=== PATIENT | male | born 1940 | race Caucasian/White ===

== ENCOUNTER → 2017-04-22 | Outpatient (CLI) | payer MEDICARE, BC ==
--- NOTE | 2017-04-22 20:16 | CT ---
EXAMINATION TYPE: CT thoracic spine wo con DATE OF EXAM: 04/22/2017 COMPARISON: NONE HISTORY: Mid back pain x [address] DLP: 2075.00 mGycm Automated exposure control for dose reduction was used. Unenhanced CT of the thoracic spine was performed in the axial coronal and sagittal planes with bone and soft tissue window settings submitted. FINDINGS: There is mildly exaggerated thoracic kyphosis. No evidence for fracture or subluxation. Severe degene rative disc disease with vacuum disc at T7-8, T8-T9 and T9-T10. Mild posterior disc bulging without e vidence for central stenosis. The remaining levels have a normal appearance of the patient's age grou p. There is mild ventral spondylosis. Do not see evidence of bony destructive process. No central naif nosis or paraspinal mass identified. Emphysematous changes of the lungs. Prominence of the heart which is partially imaged as well as asce nding thoracic aorta. 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 IMPRESSION: 1. DEGENERATIVE DISC DISEASE WITH SPONDYLOSIS AND MILD DISC BULGING THORACIC SPINE DISCUSSED ABOVE .
== END ==
LOC: RADCTMAIN 18:57
PROVIDERS: ATTEND Physical Medicine & Rehabilitation
DX: M51.24 Other intervertebral disc displacement, thoracic region (principal); M51.34 Other intervertebral disc degeneration, thoracic region; M47.814 Spondylosis without myelopathy or radiculopathy, thoracic region
CPT/HCPCS: 72128

== ENCOUNTER → 2019-03-16 | Outpatient (CLI) | payer MEDICARE, BC ==
--- NOTE | 2019-03-16 13:23 | CT ---
EXAMINATION TYPE: CT lumbar spine wo con DATE OF EXAM: 03/16/2019 12:45 PM COMPARISON: None HISTORY: Spondylosis CT DLP: 1382.1 mGycm Automated exposure control for dose reduction was used. Unenhanced CT of the lumbar spine was performed. Bone and soft tissue window settings are submitted as well as coronal and sagittal reconstructions. There is a curvature the spine with severe degenerative disc disease L4-5 and L5-S1. There is mild an eurysm of the abdominal aorta measuring a maximal dimension of 3.0 cm and there is aneurysmal dilatio n the left common iliac artery which appears to demonstrate an area of iliac artery dissection indete rminate age. The artery measures 2.3 cm. L1-L2: Normal disc space height. No disc herniation protrusion or central stenosis. No facet joint arthropathy. No evidence for foraminal encroachment. L2-L3: Degenerative disc disease and hypertrophic spurring. There is facet arthropathy. Mild paracent ral and lateral left disc bulging results in mild left foraminal encroachment. Effacement of thecal s ac and mild central stenosis suspected. L3-L4: Facet hypertrophy and diffuse disc bulging. Mild bilateral foraminal encroachment. There is ef facement of thecal sac. Could not exclude a left paracentral disc small protrusion. Suspect canal naif nosis. L4-L5: Severe degenerative disc disease. Broad-based central disc bulging is seen and there is facet arthropathy. Canal stenosis and bilateral foraminal encroachment suspected L5-S1: Vacuum disc and severe degenerative disc disease. Central broad-based disc bulging seen and th ere is facet arthropathy with moderate bilateral foraminal encroachment. Central canal stenosis sugge sted. IMPRESSION: 1. Scoliotic curvature with multilevel degenerative disc disease. Severe degenerative disc disease wi th vacuum disc at levels L2-3, L4-5, and L5-S1. 2. Multilevel canal stenosis and foraminal encroachment suspected. 3. There is a 3 cm infrarenal abdominal aortic aneurysm with aneurysmal dilation the left common jigna c artery. 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 Report called to the patient's referring physician. A [facility] level critical message alert has been initiated for Austin Love MD via the [facility] Critical Results System on 03/16/2019 1:14 PM. This message alert has been sent to Austin shrestha MD via the preferences provided by the clinician for the receipt of Radiology Critical Findings. Message ID [id number].
== END | disposition home or self-care (01) ==
LOC: RADCTMAIN 12:21
PROVIDERS: ATTEND Physical Medicine & Rehabilitation
DX: M51.36 Other intervertebral disc degeneration, lumbar region (principal); M51.37 Other intervertebral disc degeneration, lumbosacral region; M41.86 Other forms of scoliosis, lumbar region
CPT/HCPCS: 72131

== ENCOUNTER → 2021-04-02 | Outpatient (CLI) | payer MEDICARE, BC ==
--- NOTE | 2021-04-02 13:42 | CT ---
EXAMINATION TYPE: CT lumbar spine wo con DATE OF EXAM: 04/02/2021 1:26 PM COMPARISON: CT lumbar spine March 16, 2019 HISTORY: Low back and bilateral hip pain x [address] DLP: 1134 mGycm Automated exposure control for dose reduction was used. Unenhanced CT of the lumbar spine was performed. Bone and soft tissue window settings are submitted as well as coronal and sagittal reconstructions. There are 5 lumbar-type vertebra redemonstrated. Persistent dextroconvex scoliosis centered near L1-L 2 level and levoconvex scoliosis centered near lumbosacral junction. Vertebral body heights are maint ained. [id number] disc space narrowing with vacuum disc phenomenon at L5-S1 level redemonstrate d. Moderate disc space narrowing with endplate sclerosis right L4-L5 level again seen. Prominent spur from anterior superior L3 vertebra. Multilevel spinous process hypertrophy noted. Axial images at the T12-L1 and L1-L2 levels remain within normal limits. Axial images at the L2-L3 level redemonstrated mild to moderate facet arthropathy and ligamentum flav um hypertrophy with [id number] broad disc bulge. Mild effacement of the anterior thecal sac wit h mild to moderate left sided neural foraminal narrowing inferiorly. Right-sided neural foramina is p atent. No significant change from prior. Axial images at the L3-L4 level redemonstrated moderate broad disc bulge and mild to moderate facet a rthropathy and ligamentum flavum hypertrophy. Some effacement of the anterior and posterior lateral t hecal sac redemonstrated. Mild to moderate bilateral neural foraminal narrowing again seen. No signif icant change from prior. Axial images at the L4-L5 level show moderate right greater than left facet arthropathy. Moderate bro ad disc bulge is present. Mild effacement of the anterior thecal sac. Moderate to severe right along with mild left-sided neural foraminal narrowing. No significant change from prior. Axial images at L5-S1 level show left paracentral disc protrusion and mild facet arthropathy. There i s moderate right greater than left bilateral neural foraminal narrowing. No significant change from p rior. There is ectatic and moderate to severe atherosclerotic abdominal aorta and common iliac arterial ves sels redemonstrated. No greater than 3.0 cm AAA. IMPRESSION: Scoliosis with multilevel degenerative changes as detailed above greatest in the mid to l ower lumbar spine. No significant interval degenerative progression from 2019 CT.
== END | disposition home or self-care (01) ==
LOC: RADCTMAIN 12:57
PROVIDERS: ATTEND Physical Medicine & Rehabilitation
DX: M48.061 Spinal stenosis, lumbar region without neurogenic claudication (principal); M51.27 Other intervertebral disc displacement, lumbosacral region; M51.36 Other intervertebral disc degeneration, lumbar region; M47.816 Spondylosis without myelopathy or radiculopathy, lumbar region; M99.73 Connective tissue and disc stenosis of intervertebral foramina of lumbar region
CPT/HCPCS: 72131

== ENCOUNTER → 2021-05-20 | Outpatient (CLI) | payer MEDICARE, BC ==
--- NOTE | 2021-05-20 11:20 | CT ---
EXAMINATION TYPE: CT ChestAbdPelvis wo con DATE OF EXAM: 05/20/2021 INDICATION: Abdominal aortic aneurysm without rupture COMPARISON: None CT DLP: 1385.9 mGycm CONTRAST: Performed without Oral Contrast. Intravenous contrast was not utilized at this time given abnormal re nal function. TECHNIQUE: Axial images at 5 mm thick sections. Reconstructed images in the coronal plane. Delayed images through the kidneys. FINDINGS: There is a three-vessel arch. Vascular calcification is within the aorta and great vessels. The aort a at the aortic root is 3.1 cm. The aorta at the level of the main pulmonary artery is 4.3 cm. Aortic arch transverse dimension is 3.0 cm. Descending thoracic aorta at the level of the diaphragm is 2.7 cm. Calcification is within the superior mesenteric artery. Some calcifications within the celiac axis. R enal artery calcification is noted there is fusiform prominence of the mid abdominal aorta with surro unding calcification. Greatest transverse dimension is 2.5 cm. This terminates above the bifurcation. However, the densely calcified left common iliac artery is somewhat prominent with the transverse di mension of 1.6 cm in its midportion. CT CHEST: Portion of the thyroid visualized is normal. There is a calcified granuloma in the right upper lobe periphery measuring 0.8 cm. Series 4 image 15. Note is made of emphysematous changes within the upper lung mon. No suspicious infiltrates are ev ident. No enlarged mediastinal or hilar adenopathy is evident. The ascending aorta diameter at the level of the main pulmonary artery is 4.3 cm. The main pulmonary artery diameter at the bifurcation is 2.[address] ABDOMEN: Liver: Normal Spleen: Normal Pancreas: Normal Adrenal glands: The adrenal glands are normal. Gallbladder: Normal Kidneys: No masses are evident. No hydronephrosis is present. No cysts are present. Delayed images were obtained through the kidneys, which remain unremarkable. Aorta: Vascular calcification is within the aorta. Inferior vena cava: Normal. CT PELVIS: Loops of bowel within the abdomen and pelvis are normal. There are loops of bowel which are incom pletely distended or lack oral contrast limiting their evaluation. Appendix: Small segment of the appendix is normal as visualized. Urinary bladder: Normal. Genitourinary structures: Prostate is prominent Osseous structures: No suspicious lytic or sclerotic lesions. IMPRESSIONS: 1. Ascending thoracic aortic aneurysm measuring 4.3 cm. 2. Fusiform prominence mid abdominal aorta with a transverse dimension of 2.5 cm. There is also some prominence of the left mid common iliac artery of 1.6 cm. 3. No suspicious intra-abdominal or pelvic abnormality. 4. No suspicious intrathoracic abnormality otherwise evident.
== END | disposition home or self-care (01) ==
LOC: RADCTMAIN 07:56
PROVIDERS: ATTEND Thoracic Surgery (Cardiothoracic Vascular Surgery)
DX: I71.2 Thoracic aortic aneurysm, without rupture (principal)
CPT/HCPCS: 36415; 71250; 74176; 82565; 84520

== ENCOUNTER 2023-05-18 12:56 | Inpatient (IN) | payer MEDICARE, BC ==
[2023-05-18 13:29] LABS: Basophils % (A) 0 %; Eosinophils # (A) 0.2 k/uL (0-0.7); Eosinophils % (A) 3 %; HGB 15.2 gm/dL (13.0-17.5); Lymphocytes # (A) 1.8 k/uL (1.0-4.8); Lymphocytes % (A) 27 %; MCH 30.8 pg (25.0-35.0); MCHC 31.7 g/dL (31.0-37.0); Mean Platelet Volume 10.4; Monocytes # (A) 0.5 k/uL (0-1.0); Monocytes % (A) 7 %; Neutrophils % (A) 61 %; Platelet Count 159 k/uL (150-450); RBC 4.94 m/uL (4.30-5.90); RDW 14.1 % (11.5-15.5); WBC 6.6 k/uL (3.8-10.6)
[2023-05-18 13:41] LABS: Partial Thromboplastin Time 24.5 sec (22.0-30.0); Prothrombin Time 10.3 sec (9.0-12.0)
[2023-05-18 13:46] LABS: ALT 16 U/L (4-49); AST 24 U/L (17-59); African American GFR (CKD) 60 (>60 ml/min/1.73 sqM); Alkaline Phosphatase 52 U/L (38-126); Anion Gap 13 mmol/L; Blood Urea Nitrogen 21 mg/dL (9-20); Calcium 8.7 mg/dL (8.4-10.2); Carbon Dioxide 22 mmol/L (22-30); Chloride 107 mmol/L (98-107); Glucose 148 mg/dL (74-99); Non-African American GFR(CKD) 52 (>60 ml/min/1.73 sqM); Potassium 4.9 mmol/L (3.5-5.1); Sodium 142 mmol/L (137-145); Total Bilirubin 0.9 mg/dL (0.2-1.3)
--- NOTE | 2023-05-18 14:07 | XR ---
EXAMINATION TYPE: XR chest 2V DATE OF EXAM: 05/18/2023 COMPARISON: 05/20/2021 TECHNIQUE: PA and lateral views submitted. HISTORY: Weakness FINDINGS: The lungs are clear and there is no pneumothorax, pleural effusion, or focal pneumonia. Heart size normal and no overt failure. Osseous structures demonstrate hypertrophic and degenerative changes of the spine. Cardiac device and sternotomy wires. There is a 8mm nodule right upper lobe which correspo nds to a granuloma noted by prior CT scan. Underlying emphysematous changes. IMPRESSION: 1. No acute process. COPD.
--- NOTE | 2023-05-18 15:31 | ED ---
Weakness HPI - General Chief complaint: Weakness Stated complaint: Blurry Vision, multiple Falls Time Seen by Provider: 05/18/23 14:58 Source: patient Mode of arrival: wheelchair Limitations: no limitations - History of Present Illness Initial comments: 83-year-old male presents to the emergency department with complaint of visual disturbance. States for the past week that he has had a visual disturbance in his right eye which is transient. Reports that he has normal vision out of his left eye however his right eye has a visual defect in the periphery. When he is attempting to look with both eyes he will have complete vision loss on the right side however states if he closes his right eye he can see perfectly with his left. States that he notices the symptoms more in the morning and occasionally at night. He denies a curtain coming down over his eyes. Does not have active visual disturbance at this time. No history of similar. Last saw an demo specialist 6 months ago. No history of retinal disease or diabetic retinopathy. No history of macular degeneration. No history of strokes. He also admits that he has been dizzy and states his balance has been even worse over the past week. He is having difficulty ambulating due to the visual impairment. He denies any weakness in his arms or legs. No speech deficit. At this time he reports that his vision is completely normal. He denies headaches. No other alleviating, precipitating or modifying factors - Related Data Home Medications Medication Instructions Recorded Confirmed Aspirin EC [Ecotrin Low Dose] 81 mg PO DAILY 05/18/23 05/18/23 Clopidogrel [Plavix] 75 mg PO DAILY 05/18/23 05/18/23 Cyanocobalamin (Vitamin B-12) 1,000 mcg PO DAILY 05/18/23 05/18/23 [Vitamin B-12] Dapagliflozin Propanediol [Farxiga] 10 mg PO DAILY 05/18/23 05/18/23 Dulaglutide [Trulicity] 1.5 mg SQ CRAIN 05/18/23 05/18/23 Fish Oil/Dha/Epa [Fish Oil 1,200 1 cap PO DAILY 05/18/23 05/18/23 mg Fish Oil] Pregabalin [Lyrica] 200 mg PO BID 05/18/23 05/18/23 Rosuvastatin [Crestor] 10 mg PO HS 05/18/23 05/18/23 carvediloL [Coreg] 6.25 mg PO BID 05/18/23 05/18/23 lisinopriL [Zestril] 10 mg PO DAILY 05/18/23 05/18/23 sitaGLIPtin [Januvia] 50 mg PO DAILY 05/18/23 05/18/23 Allergies Allergy/AdvReac Type Severity Reaction Status Date / Time No Known Allergies Allergy Verified 05/18/23 16:42 Review of Systems ROS Statement: Those systems with pertinent positive or pertinent negative responses have been documented in the HPI. ROS Other: All systems not noted in ROS Statement are negative. Past Medical History Past Medical History: Diabetes Mellitus, Hypertension History of Any Multi-Drug Resistant Organisms: None Reported Past Surgical History: Appendectomy, Coronary Bypass/CABG, Orthopedic Surgery Additional Past Surgical History / Comment(s): knee and surgery Past Psychological History: No Psychological Hx Reported Smoking Status: Former smoker Past Alcohol Use History: None Reported Past Drug Use History: None Reported General Exam Limitations: no limitations General appearance: alert, in no apparent distress Head exam: Present: atraumatic, normocephalic, normal inspection Eye exam: Present: normal appearance, PERRL, EOMI. Absent: scleral icterus, conjunctival injection, periorbital swelling ENT exam: Present: normal exam, mucous membranes moist Neck exam: Present: normal inspection. Absent: tenderness, meningismus, lymphadenopathy Respiratory exam: Present: normal lung sounds bilaterally. Absent: respiratory distress, wheezes, rales, rhonchi, stridor Cardiovascular Exam: Present: regular rate, normal rhythm, normal heart sounds. Absent: systolic murmur, diastolic murmur, rubs, gallop, clicks GI/Abdominal exam: Present: soft, normal bowel sounds. Absent: distended, tenderness, guarding, rebound, rigid Extremities exam: Present: normal inspection, full ROM, normal capillary refill. Absent: tenderness, pedal edema, joint swelling, calf tenderness Back exam: Present: normal inspection Neurological exam: Present: alert, oriented X3, CN II-XII intact Psychiatric exam: Present: normal affect, normal mood Skin exam: Present: warm, dry, intact, normal color. Absent: rash Course Vital Signs 05/18/23 05/18/23 05/18/23 12:58 14:38 14:45 Temperature 98.2 F Pulse Rate 70 70 Pulse Rate [ 60 Voice Over Artist ] Respiratory 16 18 Rate Blood Pressure 140/76 141/78 Blood Pressure [Left Arm] O2 Sat by Pulse 96 96 Oximetry 05/18/23 05/18/23 05/18/23 15:00 17:00 18:00 Temperature Pulse Rate 65 68 85 Pulse Rate [ Voice Over Artist ] Respiratory 16 16 16 Rate Blood Pressure 140/60 166/88 165/95 Blood Pressure [Left Arm] O2 Sat by Pulse 98 98 98 Oximetry 05/18/23 05/18/23 20:03 20:09 Temperature 98.5 F Pulse Rate 70 Pulse Rate [ 69 Voice Over Artist ] Respiratory 18 18 Rate Blood Pressure 201/110 Blood Pressure 186/81 [Left Arm] O2 Sat by Pulse 97 97 Oximetry Medical Decision Making - Medical Decision Making Was pt. sent in by a medical professional or institution ([facility], [employer], urgent care, hospital, or correction...) When possible be specific @ -No Did you speak to anyone other than the patient for history (EMS, parent, family, police, friend...)? What history was obtained from this source @ -No Did you review nursing and triage notes (agree or disagree)? Why? @ -I reviewed and agree with nursing and triage notes Were old charts reviewed (outside hosp., previous admission, EMS record, old EKG, old radiological studies, urgent care reports/EKG's, correction records)? Report findings @ -No old charts were reviewed Differential Diagnosis (chest pain, altered mental status, abdominal pain women, abdominal pain men, vaginal bleeding, weakness, fever, dyspnea, syncope, headache, dizziness, GI bleed, back pain, seizure, CVA, palpatations, mental health, musculoskeletal)? @ -Differential CVA Ischemic stroke, hemorrhagic stroke, brain tumor, atypical migraine, Wernicke's encephalopathy, seizure, multiple sclerosis, meningitis, encephalitis, hypoglycemia, Guillain-Torres, electrolytes disturbance, myasthenia gravis.... This is not meant to be an all-inclusive list EKG interpreted by me (3pts min.). @ -Yes and demonstrates atrial paced rhythm with a rate of 69. [place] 171. QRS 150. QTC of 449. No acute ST segment elevations or depressions X-rays interpreted by me (1pt min.). @ -None done CT interpreted by me (1pt min.). @ -Yes Patient does have some carotid disease on the right U/S interpreted by me (1pt. min.). @ -None done What testing was considered but not performed or refused? (CT, X-rays, U/S, labs)? Why? @ -None What meds were considered but not given or refused? Why? @ -None Did you discuss the management of the patient with other professionals (professionals i.e. Dr., PA, [employer], lab, RT, psych nurse, social economist, rn supplemental, teacher, chief lending officer, case therapist)? Give summary @ -I spoke with Dr. Hassan - requesting that the patient be given an aspirin. Recommends admission for neurology and ophthalmology evaluation Was smoking cessation discussed for >3mins.? @ -No Was critical care preformed (if so, how long)? @ -No Were there social determinants of health that impacted care today? How? (Homelessness, low income, unemployed, alcoholism, drug addiction, transportation, low edu. Level, literacy, decrease access to med. care, assisted, rehab)? @ -No Was there de-escalation of care discussed even if they declined (Discuss DNR or withdrawal of care, Hospice)? DNR status @ -No What co-morbidities impacted this encounter? (DM, HTN, Smoking, COPD, CAD, Cancer, CVA, ARF, Chemo, Hep., AIDS, mental health diagnosis, sleep apnea, morbid obesity)? @ -Carotid disease, diabetes, hypertension Was patient admitted / discharged? Hospital course, mention meds given and route, prescriptions, significant lab abnormalities, going to OR and other pertinent info. @ -Admitted. Upon arrival patient was placed into room 12. Thorough history and physical exam was performed. Patient has no active symptoms at this time and therefore visual acuity is normal. Patient does wear readers however has no nearsightedness. He has normal peripheral vision at this time. IV is established and laboratory studies are conducted. He does go for CT which is normal. This is then followed by a CT angiography which demonstrates some right carotid disease and this is discussed with the patient. I spoke with Dr. Aponte. He recommends that the patient get an aspirin. He is already on Plavix. This is ordered for the patient. Recommended admission for neurology a nd ophthalmology consultation. Patient was agreeable to being admitted. He is taken to the floor stable condition Undiagnosed new problem with uncertain prognosis? @ -yes Drug Therapy requiring intensive monitoring for toxicity (Heparin, Nitro, Insulin, Cardizem)? @ -No Were any procedures done? @ -No Diagnosis/symptom? @ -default Acute, or Chronic, or Acute on Chronic? @ -Acute visual disturbance - right eye hemianopsia, worsening ataxia Uncomplicated (without systemic symptoms) or Complicated (systemic symptoms)? @ -Complicated Side effects of treatment? @ -No Exacerbation, Progression, or Severe Exacerbation? @ -No Poses a threat to life or bodily function? How? (Chest pain, [place], [place], pneumonia, PE, COPD, DKA, ARF, appy, cholecystitis, CVA, Diverticulitis, Homicidal, Suicidal, threat to staff... and all critical care pts) @ -No - Lab Data Result diagrams: 05/18/23 13:21 05/18/23 13:21 Lab Results 05/18/23 05/18/23 05/18/23 Range/Units 10:27 13:21 13:21 WBC 6.6 (3.8-10.6) k/uL RBC 4.94 (4.30-5.90) m/uL Hgb 15.2 (13.0-17.5) gm/dL Hct 48.0 (39.0-53.0) % MCV 97.0 (80.0-100.0) fL MCH 30.8 (25.0-35.0) pg MCHC 31.7 (31.0-37.0) g/dL RDW 14.1 (11.5-15.5) % Plt Count 159 (150-450) k/uL MPV 10.4 Neutrophils % 61 % Lymphocytes % 27 % Monocytes % 7 % Eosinophils % 3 % Basophils % 0 % Neutrophils # 4.0 (1.3-7.7) k/uL Lymphocytes # 1.8 (1.0-4.8) k/uL Monocytes # 0.5 (0-1.0) k/uL Eosinophils # 0.2 (0-0.7) k/uL Basophils # 0.0 (0-0.2) k/uL PT 10.3 (9.0-12.0) sec INR 1.0 (<1.2) APTT 24.5 (22.0-30.0) sec Sodium (137-145) mmol/L Potassium (3.5-5.1) mmol/L Chloride (98-107) mmol/L Carbon Dioxide (22-30) mmol/L Anion Gap mmol/L BUN (9-20) mg/dL Creatinine (0.66-1.25) mg/dL Est GFR (CKD-EPI)AfAm (>60 ml/min/1.73 sqM) Est GFR (CKD-EPI)NonAf (>60 ml/min/1.73 sqM) Glucose (74-99) mg/dL Plasma Lactic Acid Jamari (0.7-2.0) mmol/L Calcium (8.4-10.2) mg/dL Total Bilirubin (0.2-1.3) mg/dL AST (17-59) U/L ALT (4-49) U/L Alkaline Phosphatase (38-126) U/L Troponin I (0.000-0.034) ng/mL C-Reactive Protein (<1.0) mg/dL Total Protein (6.3-8.2) g/dL Albumin (3.5-5.0) g/dL Urine Color Light Yellow Urine Appearance Clear (Clear) Urine pH 5.0 (5.0-8.0) Ur Specific [place] 1.028 (1.001-1.035) Urine Protein Negative (Negative) Urine Glucose (UA) 4+ H (Negative) Urine Ketones Negative (Negative) Urine Blood Negative (Negative) Urine Nitrite Negative (Negative) Urine Bilirubin Negative (Negative) Urine Urobilinogen <2.0 (<2.0) mg/dL Ur Leukocyte Esterase Negative (Negative) 05/18/23 05/18/23 05/18/23 Range/Units 13:21 13:21 13:21 WBC (3.8-10.6) k/uL RBC (4.30-5.90) m/uL Hgb (13.0-17.5) gm/dL Hct (39.0-53.0) % MCV (80.0-100.0) fL MCH (25.0-35.0) pg MCHC (31.0-37.0) g/dL RDW (11.5-15.5) % Plt Count (150-450) k/uL MPV Neutrophils % % Lymphocytes % % Monocytes % % Eosinophils % % Basophils % % Neutrophils # (1.3-7.7) k/uL Lymphocytes # (1.0-4.8) k/uL Monocytes # (0-1.0) k/uL Eosinophils # (0-0.7) k/uL Basophils # (0-0.2) k/uL PT (9.0-12.0) sec INR (<1.2) APTT (22.0-30.0) sec Sodium 142 (137-145) mmol/L Potassium 4.9 (3.5-5.1) mmol/L Chloride 107 (98-107) mmol/L Carbon Dioxide 22 (22-30) mmol/L Anion Gap 13 mmol/L BUN 21 H (9-20) mg/dL Creatinine 1.27 H (0.66-1.25) mg/dL Est GFR (CKD-EPI)AfAm 60 (>60 ml/min/1.73 sqM) Est GFR (CKD-EPI)NonAf 52 (>60 ml/min/1.73 sqM) Glucose 148 H (74-99) mg/dL Plasma Lactic Acid Jamari 1.8 (0.7-2.0) mmol/L Calcium 8.7 (8.4-10.2) mg/dL Total Bilirubin 0.9 (0.2-1.3) mg/dL AST 24 (17-59) U/L ALT 16 (4-49) U/L Alkaline Phosphatase 52 (38-126) U/L Troponin I <0.012 (0.000-0.034) ng/mL C-Reactive Protein (<1.0) mg/dL Total Protein 7.0 (6.3-8.2) g/dL Albumin 4.0 (3.5-5.0) g/dL Urine Color Urine Appearance (Clear) Urine pH (5.0-8.0) Ur Specific [place] (1.001-1.035) Urine Protein (Negative) Urine Glucose (UA) (Negative) Urine Ketones (Negative) Urine Blood (Negative) Urine Nitrite (Negative) Urine Bilirubin (Negative) Urine Urobilinogen (<2.0) mg/dL Ur Leukocyte Esterase (Negative) 05/18/23 Range/Units 18:42 WBC (3.8-10.6) k/uL RBC (4.30-5.90) m/uL Hgb (13.0-17.5) gm/dL Hct (39.0-53.0) % MCV (80.0-100.0) fL MCH (25.0-35.0) pg MCHC (31.0-37.0) g/dL RDW (11.5-15.5) % Plt Count (150-450) k/uL MPV Neutrophils % % Lymphocytes % % Monocytes % % Eosinophils % % Basophils % % Neutrophils # (1.3-7.7) k/uL Lymphocytes # (1.0-4.8) k/uL Monocytes # (0-1.0) k/uL Eosinophils # (0-0.7) k/uL Basophils # (0-0.2) k/uL PT (9.0-12.0) sec INR (<1.2) APTT (22.0-30.0) sec Sodium (137-145) mmol/L Potassium (3.5-5.1) mmol/L Chloride (98-107) mmol/L Carbon Dioxide (22-30) mmol/L Anion Gap mmol/L BUN (9-20) mg/dL Creatinine (0.66-1.25) mg/dL Est GFR (CKD-EPI)AfAm (>60 ml/min/1.73 sqM) Est GFR (CKD-EPI)NonAf (>60 ml/min/1.73 sqM) Glucose (74-99) mg/dL Plasma Lactic Acid Jamari (0.7-2.0) mmol/L Calcium (8.4-10.2) mg/dL Total Bilirubin (0.2-1.3) mg/dL AST (17-59) U/L ALT (4-49) U/L Alkaline Phosphatase (38-126) U/L Troponin I (0.000-0.034) ng/mL C-Reactive Protein <0.5 (<1.0) mg/dL Total Protein (6.3-8.2) g/dL Albumin (3.5-5.0) g/dL Urine Color Urine Appearance (Clear) Urine pH (5.0-8.0) Ur Specific [place] (1.001-1.035) Urine Protein (Negative) Urine Glucose (UA) (Negative) Urine Ketones (Negative) Urine Blood (Negative) Urine Nitrite (Negative) Urine Bilirubin (Negative) Urine Urobilinogen (<2.0) mg/dL Ur Leukocyte Esterase (Negative) Disposition Clinical Impression: Visual disturbance, Ataxia Disposition: ADMITTED IP TO THIS HOSP Condition: Stable Is patient prescribed a controlled substance at d/c from ED?: No Time of Disposition: 19:30 Decision to Admit Reason: Admit from EC Decision Date: 05/18/23 Decision Time: 19:30
[2023-05-18 15:53] LABS: Appearance,Urine Clear (Clear); Bilirubin,Urine Negative (Negative); Blood,Urine Negative (Negative); Color,Urine Light Yellow; Glucose,Urine (UA) 4+ (Negative); Ketones,Urine Negative (Negative); Leukocyte Esterase,Urine Negative (Negative); Nitrite,Urine Negative (Negative); Protein,Urine Negative (Negative); Specific Gravity,Urine 1.028 (1.001-1.035); Urobilinogen,Urine <2.0 mg/dL (<2.0)
--- NOTE | 2023-05-18 16:03 | CT ---
EXAMINATION TYPE: CT brain wo con DATE OF EXAM: 05/18/2023 COMPARISON: None HISTORY: visual disturbance, fall CT DLP: 1177.[address] of the brain was performed. The ventricles, basal cisterns and sulci overlying the cerebral convexities demonstrate mild enlargem ent. There is no evidence for intracranial hemorrhage or sulcal effacement. There is decreased attenuation about the periventricular white matter and deep white matter of both c erebral hemispheres, compatible with chronic small vessel ischemia. Differential diagnosis does inclu de demyelination. No mass effects are seen.No midline shift. Osseous calvarium is intact. If symptoms persist consider MRI. IMPRESSION: 1. Age related atrophic and chronic small vessel ischemic change without acute intracranial process s een at this time.
--- NOTE | 2023-05-18 18:24 | CT ---
EXAMINATION TYPE: CT angio head neck DATE OF EXAM: 05/18/2023 HISTORY: right eye visual disturbance COMPARISON: None. CT DLP: 657.5 mGycm. Automated Exposure Control for Dose Reduction was Utilized. TECHNIQUE: CTA scan of the head and neck is performed with IV Contrast, patient injected with 65ml m L of Isovue 370, axial images are obtained, coronal and sagittal reformatted images are reviewed. 3D reconstructed images are created on an independent workstation and reviewed. FINDINGS: Carotid/Vascular Structures: Mild to moderate peripheral mixed plaque in the aortic arch extending in to 3 great vessels without significant stenosis. Normal origin right common carotid artery from the r ight brachiocephalic artery . Mild peripheral calcified plaque distal left common carotid artery othe rwise no significant plaque or stenosis in the common carotid arteries bilaterally. Moderate to sever e calcified plaque right carotid bulb extending into proximal internal carotid artery causing diamete r narrowing up to 3.3 mm with reconstitution up to 5.7 mm superior to this. Remainder right internal carotid artery shows moderate calcified plaque distally. Patent right external carotid artery is seen . There is a patent stent in the left carotid bulb extending into the proximal internal carotid arter y without significant stenosis at this level. There is significant stenosis at the origin of the left external carotid artery noted. Vertebral arteries are patent to the basilar junction with right vertebral artery slightly larger or dominant. No large vessel occlusion or aneurysm in the posterior circulation. There is a patent anter ior communicating artery without large vessel occlusion or aneurysm in the anterior circulation. Other: [id number] emphysematous changes in the upper lungs. There is incidental 8 mm peripheral right upper lung calcified nodule or benign granuloma axial image 33. There is partial visualization of pacemaker device and sternal wires from CABG procedure. Spondylolisthesis and degenerative change C5-C6 and C6-C7 level is seen. IMPRESSION: 1. No large vessel occlusion or aneurysm at level [place]. 2. Patent left carotid stent without significant stenosis. Moderate to severe calcified plaque right carotid bulb without significant stenosis or greater than 50% stenosis noted. NASCET criteria was used in interpretation of this exam?
[2023-05-18] MEDS ORDERED: ASPIRIN 325 MG TAB PO STA (18:41)
[2023-05-18] MEDS ORDERED: NALOXONE 0.4 MG/ML 1 ML VIAL IV PRN (19:31)
[2023-05-18] MEDS: PREGABALIN 100 MG CAP PO SCH (21:03)
[2023-05-18] MEDS: ATORVASTATIN 20 MG TAB PO SCH (21:04)
[2023-05-18] MEDS: carvediloL 6.25 MG TAB PO SCH (21:04)
[2023-05-19 06:10] LABS: Glucose,Whole Blood 103 mg/dL (70-110)
[2023-05-19] MEDS: carvediloL 6.25 MG TAB PO SCH ×2 (06:34→16:31)
[2023-05-19 07:44] LABS: Basophils % (A) 0 %; Eosinophils # (A) 0.2 k/uL (0-0.7); Eosinophils % (A) 3 %; HCT 44.1 % (39.0-53.0); HGB 14.7 gm/dL (13.0-17.5); Lymphocytes # (A) 1.6 k/uL (1.0-4.8); Lymphocytes % (A) 27 %; MCH 31.9 pg (25.0-35.0); MCHC 33.3 g/dL (31.0-37.0); MCV 95.8 fL (80.0-100.0); Mean Platelet Volume 10.6; Monocytes # (A) 0.4 k/uL (0-1.0); Monocytes % (A) 7 %; Neutrophils # (A) 3.7 k/uL (1.3-7.7); Neutrophils % (A) 61 %; Platelet Count 140 k/uL (150-450); RDW 14.2 % (11.5-15.5)
[2023-05-19 07:51] LABS: African American GFR (CKD) 61 (>60 ml/min/1.73 sqM); Anion Gap 9 mmol/L; Blood Urea Nitrogen 20 mg/dL (9-20); Calcium 8.5 mg/dL (8.4-10.2); Carbon Dioxide 24 mmol/L (22-30); Chloride 108 mmol/L (98-107); Glucose 107 mg/dL (74-99); Non-African American GFR(CKD) 52 (>60 ml/min/1.73 sqM); Potassium 4.5 mmol/L (3.5-5.1); Sodium 141 mmol/L (137-145)
[2023-05-19] MEDS ORDERED: DEXTROSE 50% SYRINGE 50 ML IVP PRN ×2 (08:26)
[2023-05-19] MEDS: CLOPIDOGREL 75 MG TAB PO SCH (09:39)
[2023-05-19] MEDS: LINAGLIPTIN 5 MG TABLET PO SCH (09:39)
[2023-05-19] MEDS: PREGABALIN 100 MG CAP PO SCH ×2 (09:39→20:05)
[2023-05-19] MEDS: DAPAGLIFLOZIN PROPANEDIOL 10 MG TABLET PO SCH (09:40)
[2023-05-19] MEDS: lisinopriL 10 MG TAB PO SCH (09:40)
[2023-05-19] MEDS: ASPIRIN 81 MG PO SCH (09:40)
[2023-05-19 11:23] LABS: Glucose,Whole Blood 115 mg/dL (70-110)
[2023-05-19] MEDS: INSULIN ASPART (NovoLOG) 100 UNIT/ML VIAL SQ SCH ×3 (12:00→20:00)
--- NOTE | 2023-05-19 16:31 | P.HPIM ---
History of Present Illness H&P Date: 05/19/23 Chief Complaint: Recurrent right eye hemianopsia This is a pleasant 83-year-old gentleman with past medical history significant for diabetes mellitus, hypertension, hyperlipidemia, CAD with CABG,PPM, PAD, carotid stenosis-left ICA stenting 11/05, prior nicotine dependence .reports compliancy with liquids and Plavix presented to the ER with complaints of blurry vision, only sees half the page when he is reading-the right half disappears, lasting up to a couple of hours. Reports visual mon become blurry ,does not black out completely; occurring 2-3 times over the last week. Denies headache, but does admit to occasional dizziness with imbalance. Also reports recent fall secondary to imbalance sustained left forearm/elbow abrasion, scabbed. Denies head trauma. Denies chest pain, palpitations or shortness of breath. Maintaining O2 sats in the high 90s on room air. Denies nausea vomiting or diarrhea. Denies abdominal pain. Denies back pain. Hematology, coagulation, chemistry panels unremarkable with the exception of BUN 28, creatinine 1.36- appears to be at baseline. UA negative. Brain CT reported age-related atrophy and chronic small vessel ischemic change without acute intracranial process seen at this time. CTA head and neck reported no large vessel occlusion or aneurysm at the levels [place], patent left carotid stent without significant stenosis. Moderate to severe calcified plaque right carotid bulb without significant stenosis or greater than 50% stenosis noted. Chest x-ray reported 8 mm nodule right upper lobe corresponding to a granuloma noted on prior CT, underlying emphysematous changes/ no acute process, COPD. Review of Systems ROS Statement: Those systems with pertinent positive or pertinent negative responses have been documented in the HPI. ROS Other: All systems not noted in ROS Statement are negative. Past Medical History Past Medical History: Diabetes Mellitus, Hypertension History of Any Multi-Drug Resistant Organisms: None Reported Past Surgical History: Appendectomy, Coronary Bypass/CABG, Orthopedic Surgery Additional Past Surgical History / Comment(s): knee and surgery Past Anesthesia/Blood Transfusion Reactions: No Reported Reaction Date of Last Stent Placement:: 08/16/2012 Past Psychological History: No Psychological Hx Reported Smoking Status: Former smoker Past Alcohol Use History: None Reported Past Drug Use History: None Reported Medications and Allergies Home Medications Medication Instructions Recorded Confirmed Type Aspirin EC [Ecotrin Low Dose] 81 mg PO DAILY 05/18/23 05/18/23 History Clopidogrel [Plavix] 75 mg PO DAILY 05/18/23 05/18/23 History Cyanocobalamin (Vitamin B-12) 1,000 mcg PO DAILY 05/18/23 05/18/23 History [Vitamin B-12] Dapagliflozin Propanediol [Farxiga] 10 mg PO DAILY 05/18/23 05/18/23 History Dulaglutide [Trulicity] 1.5 mg SQ CRAIN 05/18/23 05/18/23 History Fish Oil/Dha/Epa [Fish Oil 1,200 1 cap PO DAILY 05/18/23 05/18/23 History mg Fish Oil] Pregabalin [Lyrica] 200 mg PO BID 05/18/23 05/18/23 History Rosuvastatin [Crestor] 10 mg PO HS 05/18/23 05/18/23 History carvediloL [Coreg] 6.25 mg PO BID 05/18/23 05/18/23 History lisinopriL [Zestril] 10 mg PO DAILY 05/18/23 05/18/23 History sitaGLIPtin [Januvia] 50 mg PO DAILY 05/18/23 05/18/23 History Allergies Allergy/AdvReac Type Severity Reaction Status Date / Time No Known Allergies Allergy Verified 05/18/23 16:42 Physical Exam Vitals: Vital Signs Temp Pulse Pulse Resp BP BP Pulse Ox 05/19/23 11:40 97.9 F 70 16 165/96 95 05/19/23 09:35 97.9 F 70 18 146/76 94 L 05/19/23 03:58 71 18 98/53 96 05/19/23 01:35 63 16 05/18/23 23:56 63 16 122/58 98 05/18/23 20:09 70 18 201/110 97 05/18/23 20:03 98.5 F 69 18 186/81 97 05/18/23 18:00 85 16 165/95 98 05/18/23 17:00 68 16 166/88 98 05/18/23 15:00 65 16 140/60 98 05/18/23 14:45 60 05/18/23 14:38 70 18 141/78 96 05/18/23 12:58 98.2 F 70 16 140/76 96 Intake and Output 05/18/23 05/19/2323 22:59 06:59 14:59 Intake Total 120 Balance 120 Intake: Oral 120 Other: Voiding Method Toilet Toilet # Voids 1 Weight 107.955 kg PHYSICAL EXAM: VITAL SIGNS: [As above] GENERAL: Sitting up in bed, no acute distress, speech fluent and appropriate. HEENT: Normocephalic, Conjunctivae normal. eyes normal. MMM. NECK: Supple, No JVD. No thyroid enlargement. No LNs CARDIOVASCULAR: S1, S2 regular.. No murmur RESPIRATION: Unlabored, equal air entry .Breath sounds diminished in the bases. No rhonchi or crackles. No bronchial breathing. ABDOMEN: Soft, nondistended, nontender. No guarding. no masses palpable. No ascites, No hepatosplenomegaly.Bowel sounds heard. LEGS: No edema. no swelling PSYCHIATRY: Alert and oriented X3, mood and affect normal. NERVOUS SYSTEM: Cranial N 2-12 grossly normal. No focal deficits. Strength and sensation grossly intact. Skin: Warm and dry, no rash. Left upper forearm Scabbed abrasion. Results CBC & Chem 7: 05/19/23 06:59 05/20/23 07:07 Labs: Abnormal Lab Results - Last 24 Hours (Table) 05/18/23 05/18/23 05/18/23 Range/Units 10:27 13:21 18:42 Plt Count (150-450) k/uL ESR 28 H (0-20) mm/Hr Chloride (98-107) mmol/L BUN 21 H (9-20) mg/dL Creatinine 1.27 H (0.66-1.25) mg/dL Glucose 148 H (74-99) mg/dL POC Glucose (mg/dL) (70-110) mg/dL Urine Glucose (UA) 4+ H (Negative) 05/19/23 05/19/23 05/19/23 Range/Units 06:59 06:59 11:21 Plt Count 140 L (150-450) k/uL ESR (0-20) mm/Hr Chloride 108 H (98-107) mmol/L BUN (9-20) mg/dL Creatinine 1.26 H (0.66-1.25) mg/dL Glucose 107 H (74-99) mg/dL POC Glucose (mg/dL) 115 H (70-110) mg/dL Urine Glucose (UA) (Negative) Thrombosis Risk Factor Assmnt - Choose All That Apply Any of the Below Risk Factors Present?: No Other Risk Factors: No Each Risk Factor Represents 3 Points: Age 75 years or older Thrombosis Risk Factor Assessment Total Risk Factor Score: 3 Thrombosis Risk Factor Assessment Level: Very Low Risk Assessment and Plan Assessment: Right eye hemianopsia, recurrent, etiology unclear, possible blockage, TIA, p ossible dehydration or hypoglycemia. Carotid stenosis, history of left ICA stenting October 2022 Recent fall with left forearm, elbow abrasion Diabetes mellitus Chronic renal failure, stage III, appears to be at baseline. CAD, history of CABG PPM Hypertension Hyperlipidemia COPD Abdominal aortic aneurysm, ascending 4.3 cm, 06/05. Outpatient monitoring. Scoliosis, DDD, Chronic back pain Former nicotine dependence Plan: Continue on current medication regimen ,monitoring and symptomatic treatme nt. Ophthalmology and neurology consult in place with recommendations pending. Hemoglobin A1c ordered .PT/OT consulted. Prognosis guarded given multiple complex medical issues. The impression and plan of care has been dictated as directed. : I performed a history and examination of this patient, discussed the same with the dictator. I agree with the dictator's note ,documented as a scribe. Any additional findings or plans will be noted.
[2023-05-19] MEDS: PANTOPRAZOLE 40 MG/10 ML VIAL IVP SCH (16:32)
[2023-05-19 17:05] LABS: Glucose,Whole Blood 117 mg/dL (70-110)
--- NOTE | 2023-05-19 19:32 | P.CNNES ---
History of Present Illness Consult date: 05/19/23 Requesting physician: Shy Minor Reason for Consult: Acute right eye hemianopsia History of Present Illness: Patient is a 83-year-old male with history of hypertension, hyperlipidemia, diabetes, came to the hospital yesterday at 12:56 PM for recurrent neurological symptoms. Patient states that for last 1-1/2 weeks, he has been having visual disturbance, in which he gets bubbles in the vision, starbursts, which is not painful. He does not get any headache. Sometimes while reading, he can see only left half of the page, and the right half of the pages gone. These last for about 10 minutes to couple hours. He has been happening periodically. He has other episodes as documented by patient's in her diary is as mentioned below. On 05/06/2023 patient was sitting waiting for his 's ENT merrill ointment, when he got up and wanted to go to the grocery store. He notices something was not right, and his legs would not work. It lasted for about 45 minutes. On 05/07/2023 he was sitting having breakfast at the table when he suddenly held his head, complaining that he was feeling so dizzy, could not see on the right side. His helped him sit in the couch, and she checked his blood pressure was 93/47. She gave him some salt and caffeine, and he went to sleep for an hour and when he woke up, was fine. On 05/10/2023 at night, he went out to put the trash. For no apparent reason, he fell on the road on the sideways, but did not hit his head. He got up and within a couple minutes, he fell backwards again, but do not remember why. He felt dizzy, lost balance. Did not hit his head. He did not pass out, remembers falling. He denies any associated focal or strokelike symptoms. Patient's was present, who states that just today while in the hospital, at 12:34 PM, he started complaining of Starburst in the right eye. At 12:42 PM, he complained of blurred vision, that lasted until 1:10 PM and went away in total of 36 minutes. Vital signs on arrival blood pressure 140/76, pulse rate 70, temperature 98.2. Blood test shows normal CBC, PT/PTT, normal electrolytes, BU and 21 creatinine 1.27. Hepatic panel troponin normal. CRP negative. ESR is borderline 28. UA negative. Chest x-ray showed no acute process, COPD. EKG shows electronic atrial pacemaker. Patient had undergone left ICA stenting in [place] in October 2022. Patient states that it was performed while patient was undergoing revision of the pacemaker wires, he was found to have significant stenosis left ICA. Patient did not have any history of strokes or TIA. He underwent left ICA stenting. Patient has history of diabetes for 4-5 years. Patient has history of hypertension and hyperlipidemia for a long time. Patient has a pacemaker. He also has peripheral arterial disease involving iliac vessels. Patient smokes one pack per day for 20 years, quit 40 years ago. Denies any alcohol use. Patient takes B12, Coreg, Lyrica 200 mg twice a day, Crestor 10 mg, Plavix 75 mg, fish oil, aspirin 81 mg, Januvia 50 mg, lisinopril 10 mg, Trulicity 1.5 mg and Farxga. Review of Systems Constitutional: Denies chills, Denies fever Eyes: right blurred vision (More like distorted), right loss of peripheral vision, denies diplopia, denies pain Ears: deny: decreased hearing, ear discharge Ears, nose, mouth and throat: Denies headache, Denies sinus pressure, Denies s ore throat Cardiovascular: Denies chest pain, Denies shortness of breath Respiratory: Reports excessive sputum (in am), Denies cough Gastrointestinal: Denies abdominal pain, Denies diarrhea, Denies nausea, Denies vomiting Genitourinary: Denies incontinence, Denies urinary frequency Musculoskeletal: Reports low back pain, Denies neck pain Integumentary: Denies pruritus, Denies rash Neurological: Reports as per HPI Psychiatric: Denies anxiety, Denies depression Endocrine: Reports fatigue, Denies weight change Hematologic/Lymphatic: Reports easy bleeding, Reports easy bruising Past Medical History Past Medical History: Diabetes Mellitus, Hypertension History of Any Multi-Drug Resistant Organisms: None Reported Past Surgical History: Appendectomy, Coronary Bypass/CABG, Orthopedic Surgery Additional Past Surgical History / Comment(s): knee and surgery Past Anesthesia/Blood Transfusion Reactions: No Reported Reaction Date of Last Stent Placement:: 08/16/2012 Past Psychological History: No Psychological Hx Reported Smoking Status: Former smoker Past Alcohol Use History: None Reported Past Drug Use History: None Reported Medications and Allergies Home Medications Medication Instructions Recorded Confirmed Type Aspirin EC [Ecotrin Low Dose] 81 mg PO DAILY 05/18/23 05/18/23 History Clopidogrel [Plavix] 75 mg PO DAILY 05/18/23 05/18/23 History Cyanocobalamin (Vitamin B-12) 1,000 mcg PO DAILY 05/18/23 05/18/23 History [Vitamin B-12] Dapagliflozin Propanediol [Farxiga] 10 mg PO DAILY 05/18/23 05/18/23 History Dulaglutide [Trulicity] 1.5 mg SQ CRAIN 05/18/23 05/18/23 History Fish Oil/Dha/Epa [Fish Oil 1,200 1 cap PO DAILY 05/18/23 05/18/23 History mg Fish Oil] Pregabalin [Lyrica] 200 mg PO BID 05/18/23 05/18/23 History Rosuvastatin [Crestor] 10 mg PO HS 05/18/23 05/18/23 History carvediloL [Coreg] 6.25 mg PO BID 05/18/23 05/18/23 History lisinopriL [Zestril] 10 mg PO DAILY 05/18/23 05/18/23 History sitaGLIPtin [Januvia] 50 mg PO DAILY 05/18/23 05/18/23 History Allergies Allergy/AdvReac Type Severity Reaction Status Date / Time No Known Allergies Allergy Verified 05/18/23 16:42 Physical Examination - Vital Signs Vital Signs: Vital Signs Temp Pulse Pulse Resp BP BP Pulse Ox 05/19/23 09:35 97.9 F 70 18 146/76 94 L 05/19/23 03:58 71 18 98/53 96 05/19/23 01:35 63 16 05/18/23 23:56 63 16 122/58 98 05/18/23 20:09 70 18 201/110 97 05/18/23 20:03 98.5 F 69 18 186/81 97 05/18/23 18:00 85 16 165/95 98 05/18/23 17:00 68 16 166/88 98 05/18/23 15:00 65 16 140/60 98 05/18/23 14:45 60 05/18/23 14:38 70 18 141/78 96 10/03/23 12:58 98.2 F 70 16 140/76 96 Intake and Output 05/18/23 05/19/23 05/19/23 22:59 06:59 14:59 Intake Total 120 Balance 120 Intake: Oral 120 Other: Voiding Method Toilet # Voids 1 Weight 107.955 kg Patient is an elderly male, very pleasant, in no acute distress. Patient is alert awake oriented to time place and person. Speech and language functions are normal. Patient can name and repeat very well. No aphasia or dysarthria. Attention, concentration and fund of knowledge is adequate. On cranial nerve examination, pupils are equal, round and reacting to light, visual mon are full on confrontation, with no neglect on double simultaneous stimulation in all 4 quadrants of both eyes. Extraocular muscles are intact with no nystagmus. Face is symmetric, tongue protrudes to the midline. Palatal elevation and sensation normal, hearing and shoulder shrug normal, facial sensation normal. On muscle strength testing, there is very minimal right pronation, no drift. Muscle strength is normal in arms distally and proximally. In the lower limbs (right/left) hip flexion 5-/5, ankle dorsiflexion 5/5, toe extension 0/5, toe flexion 3+/5. Deep tendon reflexes are symmetric 1 at the biceps, 1 brachioradialis, 0 at the knees, 0 ankles and plantars downgoing bilaterally. Sensory to touch is equal with no neglect on double simultaneous stimulation. Cerebellar function showed no ataxia for [id number] testing. No dysdiadochokinesia. Patient has mild dysmetria for thut-[id number] testing only on the right side. Tone and bulk of muscles normal. Gait deferred.. On general examination, there is no carotid bruit or murmur, S1-S2 audible. Chest is clear on consultation. Abdomen is soft nontender. No organomegaly, bowel sounds present. Peripheral pulses are present. No edema. Patient does have some bruises on the forearms. Results - Laboratory Findings CBC and BMP: 05/19/23 06:59 05/19/23 06:59 Abnormal Lab Findings: Abnormal Labs 05/18/23 05/18/23 05/18/23 10:27 13:21 18:42 Plt Count ESR 28 H Chloride BUN 21 H Creatinine 1.27 H Glucose 148 H Urine Glucose (UA) 4+ H 05/19/23 05/19/23 06:59 06:59 Plt Count 140 L ESR Chloride 108 H BUN Creatinine 1.26 H Glucose 107 H Urine Glucose (UA) Assessment and Plan Assessment: * Recurrent, transient focal neurological symptoms off and on including right homonymous hemianopia, dizziness, difficulty walking, each of them lasting for about 10 minutes to half an hour. These have been going on for last 1-1/2-2 weeks. Rule out TIAs. * History of left ICA stenting in October 2022 * Hypertension * Hyperlipidemia * Diabetes * Pacemaker. * X tobacco use * Peripheral vascular disease Plan: * Patient is having recurrent neurological symptoms off and on for last 1-1/2 to 2 weeks. It is involving different vascular territories, therefore need to rule out cardioembolism. * Patient will be continued on aspirin 81 mg and Plavix 75 mg for now. * Patient cannot have MRI of the brain because of presence of pacemaker. * 2-D echo with bubble study to rule out PFO * Cardiology consultation for pacemaker interrogation, rule out paroxysmal atrial fibrillation. Patient may need transesophageal echocardiogram to rule out embolic source. * CTA head and neck showed: No large vessel occlusion, aneurysm at the level of [place]. Patent left carotid stent without significant stenosis. Moderate to severe calcified right carotid bulb without significant stenosis of greater than 50% stenosis noted. * Fasting a.m. lipid panel * Hemoglobin A1c * Permissive hypertension for next 24-48 hours * Close neuro checks as per protocol. * PT and OT evaluate gait. * Telemetry monitoring so far showing atrial paced rhythm in the 70s. * DVT prophylaxis: Lovenox 40 mg subcu daily. * Neurology will continue to follow. Thank you for the consult. Time with Patient: Greater than 30
[2023-05-19 19:49] LABS: Glucose,Whole Blood 124 mg/dL (70-110)
[2023-05-19] MEDS: ENOXAPARIN 40 MG/0.4 ML SYRINGE SQ SCH (20:06)
[2023-05-19] MEDS: ATORVASTATIN 20 MG TAB PO SCH (20:06)
--- NOTE | 2023-05-20 02:25 | CONS ---
CONSULTATION HISTORY: This is an 83-year-old white male who presented to the hospital complaining of weakness and a visual disturbance. The patient states that he has had multiple falls over the last several months and has noted weakness in his extremities. The patient states that he notices occasional loss of vision in the right eye which seems limited to the temporal aspect of the visual field. The patient states that the vision loss is limited to only the right eye. He does not notice anything with the left eye causing problems. Furthermore, he states that the loss of peripheral vision in the right eye is limited to intermittent periods of time and followed by complete recovery. The patient has been seen by an iron guardrail installer in [place] and has undergone bilateral cataract surgery there as well. He has not been seen by an eye doctor in this area. He denies any history of retinal issues or specifically diabetic retinopathy or macular degeneration. Except for these intermittent episodes of peripheral vision loss limited to 1 eye, he does not have any other visual symptoms. The patient is currently resting comfortably and is not experiencing anything with his vision at the time of the consultation today. PHYSICAL EXAMINATION: HEENT: Visual acuity at near measured 20/30 bilaterally. The pupils were equal and reactive to light. There was no afferent defect. Extraocular movements were full in all gaze positions. On penlight exam, the lids were normal, the conjunctiva was quiet. Both corneas were clear. The anterior chambers were well formed. Iris was normal and bilateral posterior chamber intra-ocular lenses were noted. Fundus exam revealed normal-appearing maculae, vessels, and discs. IMPRESSION: 1. Visual disturbance. Because of the intermittent nature of this patient's symptoms, it is difficult to determine at bedside what might be causing this. Upon discharge, I would very much like to see this patient in followup and a computerized visual field will be performed along with closer scrutiny of his peripheral retina in the area of question. 2. Status post extracapsular cataract extraction with lens implants-good postoperative appearance. Thank you for this consult. MMODL / IJN: [id number] /
[2023-05-20 06:01] LABS: Glucose,Whole Blood 104 mg/dL (70-110)
[2023-05-20] MEDS: INSULIN ASPART (NovoLOG) 100 UNIT/ML VIAL SQ SCH ×4 (06:29→19:33)
[2023-05-20] MEDS: carvediloL 6.25 MG TAB PO SCH ×2 (06:50→17:05)
[2023-05-20 08:22] LABS: African American GFR (CKD) 63 (>60 ml/min/1.73 sqM); Anion Gap 10 mmol/L; Blood Urea Nitrogen 22 mg/dL (9-20); Calcium 8.8 mg/dL (8.4-10.2); Carbon Dioxide 24 mmol/L (22-30); Chloride 108 mmol/L (98-107); Glucose 105 mg/dL (74-99); Non-African American GFR(CKD) 54 (>60 ml/min/1.73 sqM); Potassium 4.3 mmol/L (3.5-5.1); Sodium 142 mmol/L (137-145)
[2023-05-20] MEDS: CLOPIDOGREL 75 MG TAB PO SCH (09:41)
[2023-05-20] MEDS: ASPIRIN 81 MG PO SCH (09:41)
[2023-05-20] MEDS: DAPAGLIFLOZIN PROPANEDIOL 10 MG TABLET PO SCH (09:41)
[2023-05-20] MEDS: LINAGLIPTIN 5 MG TABLET PO SCH (09:41)
[2023-05-20] MEDS: PREGABALIN 100 MG CAP PO SCH ×2 (09:41→20:14)
[2023-05-20] MEDS: lisinopriL 10 MG TAB PO SCH (09:41)
[2023-05-20] MEDS: ENOXAPARIN 40 MG/0.4 ML SYRINGE SQ SCH (09:41)
[2023-05-20] MEDS: PANTOPRAZOLE 40 MG/10 ML VIAL IVP SCH (09:42)
[2023-05-20] MEDS ORDERED: ACETAMINOPHEN TAB 325 MG TAB PO PRN (10:05)
[2023-05-20 11:39] LABS: Glucose,Whole Blood 129 mg/dL (70-110)
--- NOTE | 2023-05-20 11:39 | CA ---
Transthoracic Echo Report Name: Miguelangel Huffman Age: 83 Gender: M : 1940 Exam Date: 05/20/2023 08:24 Exam Location: [facility] Ht (in): 74 Wt (lb): 238 Ordering Physician: Melida Hassan MD Attending/Referring Phys: Team Cdl Driver Eric Arciniega Procedure CPT: Indications: recurrent TIA Cardiac Hx: Technical Quality: Fair Contrast 1: Total Dose (mL): Contrast 2: Total Dose (mL): MEASUREMENTS (Male / Female) Normal Values 2D ECHO LV Diastolic Diameter PLAX 5.0 cm 4.2 - 5.9 / 3.9 - 5.3 cm LV Systolic Diameter PLAX 2.9 cm IVS Diastolic Thickness 1.4 cm 0.6 - 1.0 / 0.6 - 0.9 cm LVPW Diastolic Thickness 1.4 cm 0.6 - 1.0 / 0.6 - 0.9 cm LV Relative Wall Thickness 0.6 RV Internal Dim ED PLAX 2.5 cm LVOT Diameter 2.0 cm Aortic Root Diameter 3.1 cm LA Systolic Diameter LX 3.1 cm 3.0 - 4.0 / 2.7 - 3.8 cm LV Diastolic Volume MOD BP 61.8 cm??? 67 - 155 / 56 - 104 cm??? LV Systolic Volume MOD BP 27.2 cm??? - 58 / 19 - 49 cm??? LV Ejection Fraction MOD BP 56.0 % >= 55 % LV Cardiac Index MOD BP 995.3 cm???/min???m??? LV Diastolic Volume MOD 4C 70.7 cm??? LV Systolic Volume MOD 4C 31.6 cm??? LV Ejection Fraction MOD 4C 55.2 % LV Cardiac Index MOD 4C 1123.5 cm???/min???m??? LV Diastolic Length 4C 7.9 cm LV Systolic Length 4C 7.3 cm LV Diastolic Volume MOD 2C 52.4 cm??? LV Systolic Volume MOD 2C 20.1 cm??? LV Ejection Fraction MOD 2C 61.5 % LV Cardiac Index MOD 2C 927.3 cm???/min???m??? LV Diastolic Length 2C 7.6 cm LV Systolic Length 2C 6.1 cm LA Volume 55.2 cm??? 18 - 58 / 22 - 52 cm??? LA Volume Index 23.0 cm???/m??? 16 - 28 cm???/m??? DOPPLER AV Peak Velocity 124.0 cm/s AV Peak Gradient 6.2 mmHg LVOT Peak Velocity 79.2 cm/s LVOT Peak Gradient 2.5 mmHg LVOT Velocity Time Integral 22.5 cm LVOT Stroke Volume 71.4 cm??? LVOT Stroke Volume Index 30.5 ml/m??? LVOT Cardiac Index 2054.9 cm???/min???m??? AV Area Cont Eq pk 2.0 cm??? MV Peak Velocity 102.3 cm/s MV Peak Gradient 4.2 mmHg MV Mean Velocity 58.7 cm/s MV Mean Gradient 1.6 mmHg MV Velocity Time Integral 37.0 cm MR Peak Velocity 477.6 cm/s MR Peak Gradient 91.3 mmHg Mitral E Point Velocity 96.1 cm/s Mitral A Point Velocity 103.8 cm/s Mitral E to A Ratio 0.9 MV Deceleration Time 300.0 ms MV E' Velocity 4.4 cm/s Mitral E to MV E' Ratio 22.1 TR Peak Velocity 237.9 cm/s TR Peak Gradient 22.6 mmHg Right Ventricular Systolic Press 28.1 mmHg PV Peak Velocity 85.4 cm/s PV Peak Gradient 2.9 mmHg FINDINGS Left Ventricle Normal LV size. Mild concentric LVH. Left ventricular ejection fraction is estimated at 50-55 %. Right Ventricle Normal right ventricular size. RVSP= 28mmHg. Right Atrium Normal right atrial size. Left Atrium Normal left atrial size. LA volume index= 23.5ml/m2 Mitral Valve Structurally normal mitral valve. Mild MR. Aortic Valve Trileaflet aortic valve. Mild AV sclerosis/calcification.no aortic regurgitation. No aortic stenosis. Tricuspid Valve Structurally normal tricuspid valve. Mild TR. Pulmonic Valve Pulmonic valve not well visualized. No pulmonic regurgitation. Pericardium Normal pericardium. Aorta Normal size aortic root CONCLUSIONS Normal LV function Mild mitral regurgitation Previewed by: Dr. Jeremiah Amin MD (Electronically Signed) Final Date: 20 May 2023 11:38
[2023-05-20 11:46] LABS: Chol/HDL Ratio 3.71 Ratio; LDL Cholesterol,Calculated 56.2 mg/dL (0.0-131.0)
--- NOTE | 2023-05-20 11:59 | P.CRDCN ---
History of Present Illness History of present illness: HISTORY OF PRESENT ILLNESS: This is a 83-year-old male with a past medical history significant for coronary artery disease with previous CABG in 1996, permanent pacemaker implantation, and carotid stenosis with left-sided carotid stent. Patient states that he follows with a home health aide caregiver in [place]. We have been asked to see the patient in consultation for WISAM. Patient examined at the bedside. Patient presented to the hospital with a chief complaint of visual disturbances over the past few weeks. He states that many times he has been having blurred vision in his left eye and sometimes loss of vision on the right. He denies any chest pain or pressure. He denies any shortness of breath. * EKG reveals atrial ventricular paced rhythm * Chest xray negative for acute process * CTA: Patent left carotid stent without significant stenosis. Moderate to severe calcified plaque right carotid bulb without significant stenosis or greater than 50% stenosis noted. * Current home cardiac medications include Plavix 75 mg daily, rosuvastatin 10 mg at night, lisinopril 10 mg daily, carvedilol 6.25 mg twice a day, aspirin 81 mg daily * Echocardiogram completed revealing ejection fraction 50-55%, mild MR, mild TR REVIEW OF SYSTEMS: At the time of my exam: CONSTITUTIONAL: Denies fever or chills. HEENT: Denies blurred vision, vision changes, or eye pain. Denies hemoptysis CARDIOVASCULAR: Denies chest pain. Denies orthopnea. Denies PND. Denies palpitations RESPIRATORY: Denies shortness of breath. GASTROINTESTINAL: Denies abdominal pain. Denies nausea or vomiting. HEMATOLOGIC: Denies bleeding disorders. GENITOURINARY: Denies any blood in urine. SKIN: Denies pruitis. Denies rash. PHYSICAL EXAM: VITAL SIGNS: Reviewed. GENERAL: Well-developed in no acute distress. HEENT: Head is normocephalic. Pupils are equal, round. Sclerae anicteric. Mucous membranes of the mouth are moist. Neck supple. No JVD or thyromegaly LUNGS: Respirations even and unlabored. Lungs essentially clear to auscultation bilaterally. HEART: Regular rate and rhythm. S1 and S2 heard. ABDOMEN: Soft. Nondistended. Nontender. EXTREMITIES: Normal range of motion. No clubbing or cyanosis. Peripheral pulses intact. No lower extremity edema NEUROLOGIC: Awake and alert. Oriented x 3. ASSESSMENT: Visual disturbances, 2 weeks Possible recurrent TIA Carotid stenosis with previous stenting of left ICA Coronary artery disease with previous CABG History of pacemaker implantation PLAN: Continue current cardiac medications Neurology following for possible recurrent TIA NPO at midnight Patient will undergo WISAM tomorrow with Dr. Osorio Further recommendations pending patient course Nurse practitioner note has been reviewed by physician. Signing provider agrees with the documented findings, assessment, and plan of care. Past Medical History Past Medical History: Diabetes Mellitus, Hypertension History of Any Multi-Drug Resistant Organisms: None Reported Past Surgical History: Appendectomy, Coronary Bypass/CABG, Orthopedic Surgery Additional Past Surgical History / Comment(s): knee and surgery Past Anesthesia/Blood Transfusion Reactions: No Reported Reaction Date of Last Stent Placement:: 08/16/2012 Past Psychological History: No Psychological Hx Reported Smoking Status: Former smoker Past Alcohol Use History: None Reported Past Drug Use History: None Reported Medications and Allergies Home Medications Medication Instructions Recorded Confirmed Type Aspirin EC [Ecotrin Low Dose] 81 mg PO DAILY 05/18/23 05/18/23 History Clopidogrel [Plavix] 75 mg PO DAILY 05/18/23 05/18/23 History Cyanocobalamin (Vitamin B-12) 1,000 mcg PO DAILY 05/18/23 05/18/23 History [Vitamin B-12] Dapagliflozin Propanediol [Farxiga] 10 mg PO DAILY 05/18/23 05/18/23 History Dulaglutide [Trulicity] 1.5 mg SQ CRAIN 05/18/23 05/18/23 History Fish Oil/Dha/Epa [Fish Oil 1,200 1 cap PO DAILY 05/18/23 05/18/23 History mg Fish Oil] Pregabalin [Lyrica] 200 mg PO BID 05/18/23 05/18/23 History Rosuvastatin [Crestor] 10 mg PO HS 05/18/23 05/18/23 History carvediloL [Coreg] 6.25 mg PO BID 05/18/23 05/18/23 History lisinopriL [Zestril] 10 mg PO DAILY 05/18/23 05/18/23 History sitaGLIPtin [Januvia] 50 mg PO DAILY 05/18/23 05/18/23 History Allergies Allergy/AdvReac Type Severity Reaction Status Date / Time No Known Allergies Allergy Verified 05/18/23 16:42 Physical Exam Vitals: Vital Signs Temp Pulse Resp BP Pulse Ox 05/20/23 04:00 69 16 120/71 95 05/20/23 02:00 68 16 05/20/23 00:00 68 16 122/67 95 05/19/23 20:00 97.9 F 69 16 158/85 98 05/19/23 16:30 70 18 148/75 95 05/19/23 11:40 97.9 F 70 16 165/96 95 05/19/23 09:35 97.9 F 70 18 146/76 94 L Intake and Output 05/19/23 05/20/23 05/20/23 22:59 06:59 14:59 Intake Total 180 Balance 180 Intake: Oral 180 Other: Voiding Method Toilet Toilet # Voids 1 1 Results 05/19/23 06:59 05/20/23 07:07 Comprehensive Metabolic Panel 05/20/23 Range/Units 07:07 Sodium 142 (137-145) mmol/L Potassium 4.3 (3.5-5.1) mmol/L Chloride 108 H (98-107) mmol/L Carbon Dioxide 24 (22-30) mmol/L BUN 22 H (9-20) mg/dL Creatinine 1.23 (0.66-1.25) mg/dL Glucose 105 H (74-99) mg/dL Calcium 8.8 (8.4-10.2) mg/dL Current Medications Generic Name Dose Route Start Last Admin Trade Name Freq PRN Reason Stop Dose Admin Aspirin 81 mg 05/19/23 09:00 05/19/23 09:40 Aspirin 81 Mg PO 81 mg DAILY HOANG Administration Atorvastatin Calcium 20 mg 05/18/23 21:00 05/19/23 20:06 Atorvastatin 20 Mg Tab PO 20 mg HS HOANG Administration Carvedilol 6.25 mg 05/18/23 21:00 05/20/23 06:50 Carvedilol 6.25 Mg Tab PO 6.25 mg BID-W/MEALS HOANG Administration Clopidogrel Bisulfate 75 mg 05/19/23 09:00 05/19/23 09:39 Clopidogrel 75 Mg Tab PO 75 mg DAILY HOANG Administration Dapagliflozin 10 mg 05/19/23 09:00 05/19/23 09:40 Dapagliflozin Propanediol 10 Mg Tablet PO 10 mg DAILY HOANG Administration Dextrose/Water 25 ml 05/19/23 08:26 Dextrose 50% Syringe 50 Ml IVP PER PROTOCOL PRN Hypoglycemia Protocol Dextrose/Water 50 ml 05/19/23 08:26 Dextrose 50% Syringe 50 Ml IVP PER PROTOCOL PRN Hypoglycemia Protocol Enoxaparin Sodium 40 mg 05/19/23 19:45 05/19/23 20:06 Enoxaparin 40 Mg/0.4 Ml Syringe SQ 40 mg DAILY HAONG Administration Insulin Aspart 0 unit 05/19/23 12:30 05/20/23 06:29 Insulin Aspart (Novolog) 100 Unit/Ml Vial SQ Not Given ACHS HOANG Protocol Linagliptin 5 mg 05/19/23 09:00 05/19/23 09:39 Linagliptin 5 Mg Tablet PO 5 mg DAILY HOANG Administration Lisinopril 10 mg 05/19/23 09:00 05/19/23 09:40 Lisinopril 10 Mg Tab PO 10 mg DAILY HOANG Administration Naloxone HCl 0.2 mg 05/18/23 19:31 Naloxone 0.4 Mg/Ml 1 Ml Vial IV Q2M PRN Opioid Reversal Pantoprazole Sodium 40 mg 05/19/23 12:00 05/19/23 16:32 Pantoprazole 40 Mg/10 Ml Vial IVP 40 mg DAILY HOANG Administration Pregabalin 200 mg 05/18/23 21:00 05/19/23 20:05 Pregabalin 100 Mg Cap PO 200 mg BID HOANG Administration Intake and Output 05/19/23 05/20/23 05/20/23 22:59 06:59 14:59 Intake Total 180 Balance 180 Intake: Oral 180 Other: Voiding Method Toilet Toilet # Voids 1 1 05/19/23 06:59 05/20/23 07:07
--- NOTE | 2023-05-20 14:18 | P.PN ---
Subjective Progress Note Date: 05/20/23 H&P Date: 05/19/23 Chief Complaint: Recurrent right eye hemianopsia This is a pleasant 83-year-old gentleman with past medical history significant for diabetes mellitus, hypertension, hyperlipidemia, CAD with CABG,PPM, PAD, carotid stenosis-left ICA stenting 11/05, prior nicotine dependence .reports compliancy with liquids and Plavix presented to the ER with complaints of blurry vision, only sees half the page when he is reading-the right half disappears, lasting up to a couple of hours. Reports visual mon become blurry ,does not black out completely; occurring 2-3 times over the last week. Denies headache, but does admit to occasional dizziness with imbalance. Also reports recent fall secondary to imbalance sustained left forearm/elbow abrasion, scabbed. Denies head trauma. Denies chest pain, palpitations or shortness of breath. Maintaini ng O2 sats in the high 90s on room air. Denies nausea vomiting or diarrhea. Denies abdominal pain. Denies back pain. Hematology, coagulation, chemistry panels unremarkable with the exception of BUN 28, creatinine 1.36-appears to be at baseline. UA negative. Brain CT reported age-related atrophy and chronic small vessel ischemic change without acute intracranial process seen at this time. CTA head and neck reported no large vessel occlusion or aneurysm at the levels [place], patent left carotid stent without significant stenosis. Moderate to severe calcified plaque right carotid bulb without significant stenosis or greater than 50% stenosis noted. Chest x-ray reported 8 mm nodule right upper lobe corresponding to a granuloma noted on prior CT, underlying emphysematous changes/ no acute process, COPD. 05/20/2023 . Reports yesterday afternoon and last night developed recurrent "fuzzy vision" while reading. Denies blurred vision this morning complains of mild headache. Evaluated by neurology with workup in progress. Evaluated by ophthalmology, unable to do full retinal test inpatient-will require further testing outpatient. Evaluated by cardiology, echo completed -report pending ,scheduled for WISAM tomorrow. BUN 22, creatinine 1.23. Objective - Vital Signs Vital signs: Vital Signs Temp 98.1 F 05/20/23 08:00 Pulse 65 05/20/23 08:00 Resp 18 05/20/23 11:37 BP 164/92 05/20/23 11:37 Pulse Ox 97 05/20/23 11:37 FiO2 Intake & Output 05/19/23 05/20/23 05/20/23 18:59 06:59 18:59 Intake Total 1260 480 Balance 1260 480 Intake: Oral 1260 480 Other: Voiding Method Toilet Toilet Toilet # Voids 2 1 - Exam PHYSICAL EXAM: VITAL SIGNS: [As above] GENERAL: Alert and oriented 3, Sitting up in bed, no acute distress, speech fluent and appropriate. HEENT: Normocephalic, Conjunctivae normal. eyes normal. MMM. NECK: Supple, No JVD. CARDIOVASCULAR: S1, S2 regular.. No murmur RESPIRATION: Unlabored, equal air entry .Breath sounds diminished in the bases. ABDOMEN: Soft, nondistended, nontender. No guarding. +BS. LEGS: No edema. no swelling NERVOUS SYSTEM: Cranial N 2-12 grossly normal. No focal deficits. Strength and sensation grossly intact. Skin: Warm and dry, no rash. Left upper forearm Scabbed abrasion, no drinking. - Labs CBC & Chem 7: 05/19/23 06:59 05/20/23 07:07 Labs: Abnormal Lab Results - Last 24 Hours (Table) 05/19/23 05/19/23 05/20/23 Range/Units 17:02 19:46 07:07 Chloride (98-107) mmol/L BUN (9-20) mg/dL Glucose (74-99) mg/dL POC Glucose (mg/dL) 117 H 124 H (70-110) mg/dL Hemoglobin A1c 7.2 H (<=6.0) % HDL Cholesterol (40.00-60.00) mg/dL 05/20/23 05/20/23 Range/Units 07:07 11:38 Chloride 108 H (98-107) mmol/L BUN 22 H (9-20) mg/dL Glucose 105 H (74-99) mg/dL POC Glucose (mg/dL) 129 H (70-110) mg/dL Hemoglobin A1c (<=6.0) % HDL Cholesterol 30.20 L (40.00-60.00) mg/dL Assessment and Plan Assessment: Right eye hemianopsia, recurrent, etiology unclear, possible blockage, TIA, possible dehydration or hypoglycemia. Possible partial retinal detachment-full retinal testing, outpatient. Carotid stenosis, history of left ICA stenting October 2022 Recent fall with left forearm, elbow abrasion Diabetes mellitus, hemoglobin A1c 7.2 Chronic renal failure, stage III, appears to be at baseline. CAD, history of CABG PPM Hypertension Hyperlipidemia COPD Abdominal aortic aneurysm, ascending 4.3 cm, 06/05. Outpatient monitoring. Scoliosis, DDD, Chronic back pain Former nicotine dependence Plan: Continue on current medication regimen ,monitoring and symptomatic treatment. Tylenol for headache. Workup in progress including WISAM in a.m. PT evaluation pending. Prognosis guarded given multiple complex medical issues. The impression and plan of care has been dictated as directed. : I performed a history and examination of this patient, discussed the same with the dictator. I agree with the dictator's note ,documented as a scribe. Any additional findings or plans will be noted.
--- NOTE | 2023-05-20 14:35 | P.PN ---
Subjective Progress Note Date: 05/20/23 Patient was seen for a follow-up. Patient's was also present today. Patient denies any further episodes since I saw him yesterday. No visual disturbance. Objective - Vital Signs Vital signs: Vital Signs Temp 98.1 F 05/20/23 08:00 Pulse 65 05/20/23 08:00 Resp 18 05/20/23 11:37 BP 164/92 05/20/23 11:37 Pulse Ox 97 05/20/23 11:37 FiO2 Intake & Output 05/19/23 05/20/23 05/20/23 18:59 06:59 18:59 Intake Total 1260 480 Balance 1260 480 Intake: Oral 1260 480 Other: Voiding Method Toilet Toilet Toilet # Voids 2 1 - Exam Examination unchanged. Mentation normal. - Labs CBC & Chem 7: 05/19/23 06:59 05/20/23 07:07 Labs: Abnormal Lab Results - Last 24 Hours (Table) 05/19/23 05/19/23 05/20/23 Range/Units 17:02 19:46 07:07 Chloride (98-107) mmol/L BUN (9-20) mg/dL Glucose (74-99) mg/dL POC Glucose (mg/dL) 117 H 124 H (70-110) mg/dL Hemoglobin A1c 7.2 H (<=6.0) % HDL Cholesterol (40.00-60.00) mg/dL 05/20/23 05/20/23 Range/Units 07:07 11:38 Chloride 108 H (98-107) mmol/L BUN 22 H (9-20) mg/dL Glucose 105 H (74-99) mg/dL POC Glucose (mg/dL) 129 H (70-110) mg/dL Hemoglobin A1c (<=6.0) % HDL Cholesterol 30.20 L (40.00-60.00) mg/dL Assessment and Plan Assessment: * Recurrent, transient focal neurological symptoms off and on including right homonymous hemianopia, dizziness, difficulty walking, each of them lasting for about 10 minutes to half an hour. These have been going on for last 1-1/2-2 weeks. Rule out TIAs. * History of left ICA stenting in October 2022 * Hypertension * Hyperlipidemia * Diabetes * Pacemaker. * X tobacco use * Peripheral vascular disease Plan: * Patient is having recurrent neurological symptoms off and on for last 1-1/2 to 2 weeks. It is involving different vascular territories, therefore need to rule out cardioembolism. * Patient will be continued on aspirin 81 mg and Plavix 75 mg for now. * Patient cannot have MRI of the brain because of presence of pacemaker. * 2-D echo was essentially normal. Left-ventricular ejection fraction is 50- 55%. Mild MR. Normal left atrial size. * Cardiology input appreciated. Patient to undergo WISAM in the morning. Patient also needs pacemaker interrogation, rule out paroxysmal atrial fibrillation. * CTA head and neck showed: No large vessel occlusion, aneurysm at the level of [place]. Patent left carotid stent without significant stenosis. Moderate to severe calcified right carotid bulb without significant stenosis of greater than 50% stenosis noted. * Fasting a.m. lipid panel with cholesterol 112, LDL 56, HDL 30, triglycerides 128. * Hemoglobin A1c 7.2. Recommend optimize control of diabetes to target A1c < 7.0. * Optimize control of blood pressure normotensive levels. * Ophthalmology seen the patient, recommending patient follow-up outpatient. * Check EEG in the morning. * Close neuro checks. * PT and OT evaluate gait. * Telemetry monitoring so far showing atrial paced rhythm in the 70s. * DVT prophylaxis: Lovenox 40 mg subcu daily.
[2023-05-20 16:57] LABS: Glucose,Whole Blood 84 mg/dL (70-110)
[2023-05-20 19:31] LABS: Glucose,Whole Blood 141 mg/dL (70-110)
[2023-05-20] MEDS: ATORVASTATIN 20 MG TAB PO SCH (20:14)
[2023-05-21 06:01] LABS: Glucose,Whole Blood 119 mg/dL (70-110)
[2023-05-21] MEDS: INSULIN ASPART (NovoLOG) 100 UNIT/ML VIAL SQ SCH ×2 (06:09→12:07)
[2023-05-21] MEDS: carvediloL 6.25 MG TAB PO SCH (06:39)
[2023-05-21] MEDS: CLOPIDOGREL 75 MG TAB PO SCH (08:20)
[2023-05-21] MEDS: PREGABALIN 100 MG CAP PO SCH (08:20)
[2023-05-21] MEDS: lisinopriL 10 MG TAB PO SCH (08:20)
[2023-05-21] MEDS: ENOXAPARIN 40 MG/0.4 ML SYRINGE SQ SCH (08:20)
[2023-05-21] MEDS: PANTOPRAZOLE 40 MG/10 ML VIAL IVP SCH (08:20)
[2023-05-21] MEDS: ASPIRIN 81 MG PO SCH (08:20)
[2023-05-21 10:46] VITALS: TEMP 98.1
[2023-05-21] MEDS ORDERED: fentaNYL (PF) 50 MCG/ML 2 ML AMP ONE (11:19)
[2023-05-21] MEDS ORDERED: fentaNYL (PF) 50 MCG/ML 2 ML AMP IVP ONE (11:24)
[2023-05-21] MEDS ORDERED: MIDAZOLAM 2 MG/2 ML VIAL IVP ONE ×2 (11:24→11:26)
[2023-05-21] MEDS ORDERED: BENZOCAINE SPRAY 1 CAN TOPICAL ONE (11:25)
[2023-05-21] MEDS ORDERED: SODIUM CHLORIDE 0.9% 500 ML 500 ML IV ONE (11:26)
[2023-05-21 11:51] LABS: Glucose,Whole Blood 113 mg/dL (70-110)
[2023-05-21 12:39] VITALS: BP 145/87; PULSE 70; RESP 18
--- NOTE | 2023-05-21 12:46 | P.DS ---
Providers Date of admission: 05/18/23 19:31 Expected date of discharge: 05/21/23 Attending physician: Julian Rodriguez MD Consults: 05/18/23 19:31 Consult Physician Urgent Consulting Provider: Tobias Schmid Consult Reason/Comments: right hemianopsia Do you want consulting provider notified?: Yes Consult Physician Urgent Consulting Provider: Melida Hassan Consult Reason/Comments: Acute right eye hemianopsia Do you want consulting provider notified?: Already Contacted 05/19/23 15:11 Consult Physician Routine Consulting Provider: Westley Osorio Consult Reason/Comments: Probable recurrent TIA, consider WISAM Do you want consulting provider notified?: Yes Primary care physician: Julian Rodriguez MD Hospital Course: Final Diagnoses: Right eye hemianopsia, recurrent, etiology unclear, possible blockage, TIA, possible dehydration or hypoglycemia. Possible partial retinal detachment-full retinal testing, outpatient recommended. Carotid stenosis, history of left ICA stenting October 2022 Recent fall with left forearm, elbow abrasion Diabetes mellitus, hemoglobin A1c 7.2 Chronic renal failure, stage III, appears to be at baseline. CAD, history of CABG PPM Hypertension Hyperlipidemia COPD Abdominal aortic aneurysm, ascending 4.3 cm, 06/05. Outpatient monitoring. Scoliosis, DDD, Chronic back pain Former nicotine dependence Hospital course:This is a pleasant 83-year-old gentleman with past medical history significant for diabetes mellitus, hypertension, hyperlipidemia, CAD with CABG,PPM, PAD, carotid stenosis-left ICA stenting 11/05, prior nicotine dependence .reports compliancy with liquids and Plavix presented to the ER with complaints of blurry vision, only sees half the page when he is reading-the right half disappears, lasting up to a couple of hours. Reports visual mon become blurry ,does not black out completely; occurring 2-3 times over the last week. Denies headache, but does admit to occasional dizziness with imbalance. Also reports recent fall secondary to imbalance sustained left forearm/elbow abrasion, scabbed. Denies head trauma. Denies chest pain, palpitations or shortness of breath. Maintaining O2 sats in the high 90s on room air. Denies nausea vomiting or diarrhea. Denies abdominal pain. Denies back pain. Hematology, coagulation, chemistry panels unremarkable with the exception of BUN 28, creatinine 1.36-appears to be at baseline. UA negative. Brain CT reported age-related atrophy and chronic small vessel ischemic change without acute intracranial process seen at this time. CTA head and neck reported no large vessel occlusion or aneurysm at the levels [place], patent left carotid stent without significant stenosis. Moderate to severe calcified plaque right carotid bulb without significant stenosis or greater than 50% stenosis noted. Chest x-ray reported 8 mm nodule right upper lobe corresponding to a granuloma noted on prior CT, underlying emphysematous changes/ no acute process, COPD. 05/20/2023 . Reports yesterday afternoon and last night developed recurrent "fuzzy vision" while reading. Denies blurred vision this morning complains of mild headache. Evaluated by neurology with workup in progress. Evaluated by ophthalmology, unable to do full retinal test inpatient-will require further testing outpatient. Evaluated by cardiology, echo completed -report pending ,scheduled for WISAM tomorrow. BUN 22, creatinine 1.23. Evaluated by neurology with workup in progress. Pacemaker interrogated and WISAM verbally reported negative as per cardiology. Currently denies any symptoms today. Denies visual disturbances this morning. Reports he has random visual disturbances, not related to position changes. Denies lightheadedness, dizziness or focal deficits. Denies chest pain palpitations or shortness of breath. Patient will be discharged home today in a stable condition with guarded prognosis pending final DC recommendations and clearance per neurology. Patient has been advised to proceed with a full retinal testing outpatient with seed and fertilizer specialist. The impression and plan of care has been dictated as directed. : I performed a history and examination of this patient, discussed the same with the dictator. I agree with the dictator's note ,documented as a scribe. Any additional findings or plans will be noted. Patient Condition at Discharge: Stable Plan - Discharge Summary Discharge Rx Participant: No New Discharge Prescriptions: Continue Cyanocobalamin (Vitamin B-12) [Vitamin B-12] 1,000 mcg PO DAILY carvediloL [Coreg] 6.25 mg PO BID Rosuvastatin [Crestor] 10 mg PO HS Dapagliflozin Propanediol [Farxiga] 10 mg PO DAILY Clopidogrel [Plavix] 75 mg PO DAILY Fish Oil/Dha/Epa [Fish Oil 1,200 mg Fish Oil] 1 cap PO DAILY Pregabalin [Lyrica] 200 mg PO BID 3 Days #6 cap Aspirin EC [Ecotrin Low Dose] 81 mg PO DAILY sitaGLIPtin [Januvia] 50 mg PO DAILY lisinopriL [Zestril] 10 mg PO DAILY Dulaglutide [Trulicity] 1.5 mg SQ CARIN Discharge Medication List Aspirin EC [Ecotrin Low Dose] 81 mg PO DAILY 05/18/23 [History] Clopidogrel [Plavix] 75 mg PO DAILY 05/18/23 [History] Cyanocobalamin (Vitamin B-12) [Vitamin B-12] 1,000 mcg PO DAILY 05/18/23 [History] Dapagliflozin Propanediol [Farxiga] 10 mg PO DAILY 05/18/23 [History] Dulaglutide [Trulicity] 1.5 mg SQ CRAIN 05/18/23 [History] Fish Oil/Dha/Epa [Fish Oil 1,200 mg Fish Oil] 1 cap PO DAILY 05/18/23 [History] Rosuvastatin [Crestor] 10 mg PO HS 05/18/23 [History] carvediloL [Coreg] 6.25 mg PO BID 05/18/23 [History] lisinopriL [Zestril] 10 mg PO DAILY 05/18/23 [History] sitaGLIPtin [Januvia] 50 mg PO DAILY 05/18/23 [History] Pregabalin [Lyrica] 200 mg PO BID 3 Days #6 cap 05/21/23 [Rx] Follow up Appointment(s)/Referral(s): Julian Rodriguez MD [Primary Care Provider] - 3 Days Tobias Schmid MD [STAFF PHYSICIAN] - 1 Week Activity/Diet/Wound Care/Special Instructions: Verbal report per cardiology, pacemaker interrogated ,WISAM negative.
--- NOTE | 2023-05-21 12:53 | P.PCN ---
Date of Procedure: 05/21/23 Operative Findings: TRANSESOPHAGEAL ECHOCARDIOGRAM PATTERN RULER: MAXIM RYAN MD, RPVI INDICATION: Rule out cardiac source of embolization SEDATION: Conscious sedation COMPLICATION: None LEVEL OF SEDATION Moderate with sedation night of 16 minutes PROCEDURE DESCRIPTION: After obtaining an informed consent, the patient was brought to transesophageal echocardiogram room. Pulse oximetry and heart monitors were attached to the patient. The patient throat was sprayed using lidocaine. The patient was turned into left lateral position. After that a bite guard was placed. After an appropriate conscious sedation was initiated, the transesophageal echocardiogram was advanced through a bite guard into the mid esophagus. A 2-D echocardiogram images, color Doppler images, continuous wave images, pulse-wave images, of various cardiac structure were performed. After that the transesophageal echocardiogram probe was advanced into the stomach and fixed to obtain transgastric view was. The probe was brought into the mid esophagus. Inter-atrial septum was interrogated using 2D images, color Doppler images, and then contrast study. After that transesophageal echocardiogram was withdrawn out and upon withdrawing the descending thoracic aorta all the way up to the arch was evaluated. FINDING: The left ventricular dimension and systolic function appeared to be within normal limits. The ejection fraction appears to be in the range of 55-60%. The right ventricle appears to be of normal size and function. The left atrium appeared to be dilated. The left atrial appendage appeared to be free from any thrombus. The interatrial septum appeared to be intact. The aortic valve is trileaflet valve and appears to be sclerotic but no stenosis or regurgitation. There is [id number] mitral regurgitation. Normal tricuspid valve and pulmonic valve. No evidence of pericardial effusion CONCLUSION: 1. No evidence of cardiac source of embolization 2. Intact interatrial septum was no shunt 3. Intact left atrial appendage 4. Aortic sclerosis was no stenosis or insufficiency 5. [id number] mitral regurgitation 6. Mild to moderate tricuspid regurgitation
[2023-05-21] MEDS: DAPAGLIFLOZIN PROPANEDIOL 10 MG TABLET PO SCH (16:14)
[2023-05-21] MEDS: LINAGLIPTIN 5 MG TABLET PO SCH (16:15)
--- NOTE | 2023-05-21 20:51 | P.PN ---
Subjective Progress Note Date: 05/21/23 Patient was seen for a follow-up. Patient's was also present today. Patient denies any further episodes since initially seen. No visual disturbance. Objective - Vital Signs Vital signs: Vital Signs Temp 98.1 F 05/21/23 08:00 Pulse 70 05/21/23 14:00 Resp 18 05/21/23 14:00 BP 145/87 05/21/23 12:00 Pulse Ox 94 L 05/21/23 12:00 FiO2 Intake & Output 05/20/23 05/21/23 05/21/23 18:59 06:59 18:59 Intake Total 480 240 100 Balance 480 240 100 Intake: IV 100 Oral 480 240 Other: Voiding Method Toilet Toilet Toilet # Voids 1 # Bowel Movements 1 - Exam Examination unchanged. Mentation normal. - Labs CBC & Chem 7: 05/19/23 06:59 05/20/23 07:07 Labs: Abnormal Lab Results - Last 24 Hours (Table) 05/20/23 05/21/23 05/21/23 Range/Units 19:30 05:59 11:48 POC Glucose (mg/dL) 141 H 119 H 113 H (70-110) mg/dL Assessment and Plan Assessment: * Recurrent, transient focal neurological symptoms off and on including right homonymous hemianopia, dizziness, difficulty walking, each of them lasting for about 10 minutes to half an hour. These have been going on for last 1-1/2-2 weeks. Possible TIAs. * History of left ICA stenting in October 2022 * Hypertension * Hyperlipidemia * Diabetes * Pacemaker. * X tobacco use * Peripheral vascular disease Plan: * Patient is having recurrent neurological symptoms off and on for last 1-1/2 to 2 weeks. It is involving different vascular territories, therefore need to rule out cardioembolism. * WISAM performed today revealed: 1. No evidence of cardiac source of embolization 2. Intact interatrial septum was no shunt 3. Intact left atrial appendage 4. Aortic sclerosis was no stenosis or insufficiency 5. Dciq-br-jwvszepg mitral regurgitation 6. Mild to moderate tricuspid regurgitation * Patient will be switched from Plavix to Brilinta 90 mg twice a day. Continue aspirin 81 mg daily. * Patient cannot have MRI of the brain because of presence of pacemaker. * 2-D echo was essentially normal. Left-ventricular ejection fraction is 50- 55%. Mild MR. Normal left atrial size. * Cardiology input appreciated. Pacemaker interrogation revealed no evidence of atrial fibrillation. * CTA head and neck showed: No large vessel occlusion, aneurysm at the level of [place]. Patent left carotid stent without significant stenosis. Moderate to severe calcified right carotid bulb without significant stenosis of greater than 50% stenosis noted. * Fasting a.m. lipid panel with cholesterol 112, LDL 56, HDL 30, triglycerides 128. Continue Crestor 10 mg daily. * Hemoglobin A1c 7.2. Recommend optimize control of diabetes to target A1c < 7.0. * Optimize control of blood pressure normotensive levels. * Ophthalmology seen the patient, recommending patient follow-up outpatient. Patient needs to follow-up with ophthalmology as soon as possible. * EEG performed today was completely normal. No epileptiform activity seen. * Telemetry monitoring so far showing atrial paced rhythm in the 70s. * Neurologically clear for discharge with the above recommendations.
--- NOTE | 2023-05-21 23:20 | EEG ---
DATE OF SERVICE: 05/21/2023 ELECTROENCEPHALOGRAM REPORT PREAMBLE: This is an 83-year-old male with recurrent focal symptoms, rule out TIA versus focal seizure. EEG FINDINGS: This is a 21-channel digital EEG recorded with video component, utilizing 10/20 international system with referential and bipolar montages. Background consists of well developed, well regulated moderate voltage activity in 9 hertz alpha. Background is posterior dominant and reactive to eye opening and closing. The photic driving response was not seen. Drowsiness was seen with appearance of bilaterally symmetric theta frequency rhythm. Some brief stage 2 sleep was seen with presence of sleep spindles and some vertex waves. No focal or generalized epileptiform activity was seen. IMPRESSION: This is a normal EEG during wakefulness, drowsiness and brief stage 2 sleep. No focal, lateralized or epileptiform activity was seen. MMODL / IJN: [id number] / MTDD
== END 2023-05-21 16:44 | disposition home or self-care (01) | DRG 69 ==
LOC: EC 12:56 → 3SCARD 19:31
PROVIDERS: ADMIT Family Medicine; ATTEND Family Medicine
PROC: 4B02XSZ Measurement of Cardiac Pacemaker, External Approach (ICD-10-PCS; 2023-05-21)
PROC: B24BZZ4 Ultrasonography of Heart with Aorta, Transesophageal (ICD-10-PCS; principal; 2023-05-21 07:30)
DX: G45.9 Transient cerebral ischemic attack, unspecified (principal); H53.461 Homonymous bilateral field defects, right side; I67.89 Other cerebrovascular disease; E11.22 Type 2 diabetes mellitus with diabetic chronic kidney disease; E11.51 Type 2 diabetes mellitus with diabetic peripheral angiopathy without gangrene; J84.10 Pulmonary fibrosis, unspecified; N18.30 Chronic kidney disease, stage 3 unspecified; J44.9 Chronic obstructive pulmonary disease, unspecified; I71.40 Abdominal aortic aneurysm, without rupture, unspecified; I12.9 Hypertensive chronic kidney disease with stage 1 through stage 4 chronic kidney disease, or unspecified chronic kidney disease; I25.10 Atherosclerotic heart disease of native coronary artery without angina pectoris; I65.22 Occlusion and stenosis of left carotid artery; E78.5 Hyperlipidemia, unspecified; S50.319A Abrasion of unspecified elbow, initial encounter; G89.29 Other chronic pain; M54.9 Dorsalgia, unspecified; M41.9 Scoliosis, unspecified; Z79.82 Long term (current) use of aspirin; Z79.84 Long term (current) use of oral hypoglycemic drugs; Z79.85 Long-term (current) use of injectable non-insulin antidiabetic drugs; Z79.899 Other long term (current) drug therapy; R29.6 Repeated falls; Z91.81 History of falling; Z45.018 Encounter for adjustment and management of other part of cardiac pacemaker; Z87.891 Personal history of nicotine dependence; Z95.1 Presence of aortocoronary bypass graft; Z95.820 Peripheral vascular angioplasty status with implants and grafts; W19.XXXA Unspecified fall, initial encounter
CPT/HCPCS: 36415; 70450; 70496; 70498; 71046; 80048; 80053; 80061; 81003; 83036; 83605; 84484; 85025; 85610; 85652; 85730; 86140; 93005; 93306; 93312; 93320; 93325; 95816; 99285

== ENCOUNTER 2024-02-15 13:13 | Emergency (ER) | payer MEDICARE, BC ==
[2024-02-15 13:20] VITALS: RESP 18
--- NOTE | 2024-02-15 13:30 | ED ---
Fall HPI - General Chief Complaint: Fall Stated Complaint: L knee pain, fall Time Seen by Provider: 02/15/24 13:30 Source: EMS Mode of arrival: EMS - History of Present Illness Initial Comments: This is an 83-year-old male presents emergency department via EMS for chief complaint of left knee pain. Patient states that he was walking outside yesterday when he tripped over portion of the sidewalk falling and landing on his left knee. Patient denies hitting his head or loss of conscious at the time of fall. Denies blood thinner use. He denies other acute bony complaints. P atient states that he is having a difficult time bearing weight on the left leg and is seeing severe pain with walking. He denies numbness or paresthesias. He denies bladder or bowel incontinence, saddle anesthesias. - Related Data Home Medications Medication Instructions Recorded Confirmed Aspirin EC [Ecotrin Low Dose] 81 mg PO DAILY 05/18/23 05/18/23 Cyanocobalamin (Vitamin B-12) 1,000 mcg PO DAILY 05/18/23 05/18/23 [Vitamin B-12] Dapagliflozin Propanediol [Farxiga] 10 mg PO DAILY 05/18/23 05/18/23 Dulaglutide [Trulicity] 1.5 mg SQ CRAIN 05/18/23 05/18/23 Fish Oil/Dha/Epa [Fish Oil 1,200 1 cap PO DAILY 05/18/23 05/18/23 mg Fish Oil] Rosuvastatin [Crestor] 10 mg PO HS 05/18/23 05/18/23 carvediloL [Coreg] 6.25 mg PO BID 05/18/23 05/18/23 lisinopriL [Zestril] 10 mg PO DAILY 05/18/23 05/18/23 sitaGLIPtin [Januvia] 50 mg PO DAILY 05/18/23 05/18/23 Previous Rx's Medication Instructions Recorded Pregabalin [Lyrica] 200 mg PO BID 3 Days #6 cap 05/21/23 Ticagrelor [Brilinta] 90 mg PO BID 30 Days #60 tab 05/21/23 Allergies Allergy/AdvReac Type Severity Reaction Status Date / Time No Known Allergies Allergy Verified 02/15/24 13:20 Review of Systems ROS Statement: Those systems with pertinent positive or pertinent negative responses have been documented in the HPI. ROS Other: All systems not noted in ROS Statement are negative. Past Medical History Past Medical History: Diabetes Mellitus, Hypertension History of Any Multi-Drug Resistant Organisms: None Reported Past Surgical History: Appendectomy, Coronary Bypass/CABG, Orthopedic Surgery Additional Past Surgical History / Comment(s): knee and surgery Past Anesthesia/Blood Transfusion Reactions: No Reported Reaction Date of Last Stent Placement:: 08/16/2012 Past Psychological History: No Psychological Hx Reported Smoking Status: Former smoker Past Alcohol Use History: None Reported Past Drug Use History: None Reported General Exam General appearance: alert, in no apparent distress Head exam: Present: atraumatic, normocephalic, normal inspection Eye exam: Present: normal appearance, PERRL, EOMI. Absent: scleral icterus, conjunctival injection, periorbital swelling ENT exam: Present: normal exam, mucous membranes moist Neck exam: Present: normal inspection. Absent: tenderness, meningismus, lymphadenopathy Respiratory exam: Present: normal lung sounds bilaterally. Absent: respiratory distress, wheezes, rales, rhonchi, stridor Cardiovascular Exam: Present: regular rate, normal rhythm, normal heart sounds. Absent: systolic murmur, diastolic murmur, rubs, gallop, clicks GI/Abdominal exam: Present: soft, normal bowel sounds. Absent: distended, tenderness, guarding, rebound, rigid Left Knee exam: Present: tenderness, swelling. Absent: full ROM, abrasion, laceration, ecchymosis, deformity Lower Leg exam: Present: abrasion (noted skin cancer of the anterior lower leg, no erythema or noted purulence) Foot/Toe exam: Present: full ROM. Absent: tenderness, swelling Neurovascular tendon exam: Present: no vascular compromise Gait: observed and limited by pain (unable to complete full ambulation due to pain with bearing weight of the left knee) Back exam: Present: normal inspection Neurological exam: Present: alert, oriented X3, CN II-XII intact Psychiatric exam: Present: normal affect, normal mood Course Vital Signs 02/15/24 02/15/24 13:14 14:23 Temperature 98.4 F 98.7 F Pulse Rate 69 70 Respiratory 18 18 Rate Blood Pressure 123/66 131/69 O2 Sat by Pulse 92 L 93 L Oximetry Medical Decision Making - Medical Decision Making Was pt. sent in by a medical professional or institution (, PA, INVESTOR RELATIONS SPECIALIST, urgent care, hospital, or [facility]...) When possible be specific @ -No Did you speak to anyone other than the patient for history (EMS, parent, family, police, friend...)? What history was obtained from this source @ -No Did you review nursing and triage notes (agree or disagree)? Why? @ -I reviewed and agree with nursing and triage notes Were old charts reviewed (outside hosp., previous admission, EMS record, old EKG, old radiological studies, urgent care reports/EKG's, [facility] records)? Report findings @ -No old charts were reviewed Differential Diagnosis (chest pain, altered mental status, abdominal pain women, abdominal pain men, vaginal bleeding, weakness, fever, dyspnea, syncope, headache, dizziness, GI bleed, back pain, seizure, CVA, palpatations, mental health, musculoskeletal)? @ -Differential Musculoskeletal Muscular strain, contusion, ligament sprain, fracture, arthritis, septic arthritis, bursitis, cellulitis, muscle spasm, nerve compression, DVT, arterial occlusion, herpes zoster, electrolyte abnormality, tumor.... This is not meant to be in all inclusive list EKG interpreted by me (3pts min.). @ -none X-rays interpreted by me (1pt min.). @ -X-ray of the left knee no acute fracture or dislocation, severe osteoarthritis CT interpreted by me (1pt min.). @ -None done U/S interpreted by me (1pt. min.). @ -None done What testing was considered but not performed or refused? (CT, X-rays, U/S, labs)? Why? @ -None What meds were considered but not given or refused? Why? @ -None Did you discuss the management of the patient with other professionals (professionals i.e. , MARCUS, INVESTOR RELATIONS SPECIALIST, lab, RT, psych nurse, director of social services, telephone advice nurse, teacher, aviation tactical readiness officer, rehabilitation case coordinator)? Give summary @ -No Was smoking cessation discussed for >3mins.? @ -No Was critical care preformed (if so, how long)? @ -No Were there social determinants of health that impacted care today? How? (Homelessness, low income, unemployed, alcoholism, drug addiction, transport ation, low edu. Level, literacy, decrease access to med. care, snf, rehab)? @ -No Was there de-escalation of care discussed even if they declined (Discuss DNR or withdrawal of care, Hospice)? DNR status @ -No What co-morbidities impacted this encounter? (DM, HTN, Smoking, COPD, CAD, Cancer, CVA, ARF, Chemo, Hep., AIDS, mental health diagnosis, sleep apnea, morbid obesity)? @ -None Was patient admitted / discharged? Hospital course, mention meds given and route, prescriptions, significant lab abnormalities, going to OR and other pertinent info. @ -Discharge. 83-year-old male with left knee pain. Patient was brought to emergency department via EMS. He is having pain with range of motion of the left knee and is unable to complete ambulation due to pain. He is weightbearing however cannot bear weight slowly on the left knee. Patient be evaluated via x-ray and provided with a dose of pain medication emergency department. X-ray nonconcerning for acute process, osteoarthritic changes. Patient states that he lives at home with his which will be able to assist him as needed. Patient will be placed in a knee immobilizer and provided with a acls specialist to follow-up this week for further evaluation. Discussed that patient should continue nonweightbearing status until his follow-up appointment. Patient is in agreement with this plan. All questions answered at bedside and strict return parameters discussed with the patient and he verbalized understanding. Case discussed with Dr. Beebe. Undiagnosed new problem with uncertain prognosis? @ -No Drug Therapy requiring intensive monitoring for toxicity (Heparin, Nitro, Insulin, Cardizem)? @ -No Were any procedures done? @ -No Diagnosis/symptom? @ -left knee pain Acute, or Chronic, or Acute on Chronic? @ -acute Uncomplicated (without systemic symptoms) or Complicated (systemic symptoms)? @ -uncomplicated Side effects of treatment? @ -No Exacerbation, Progression, or Severe Exacerbation? @ -No Poses a threat to life or bodily function? How? (Chest pain, [place], MS, pneumonia, PE, COPD, DKA, ARF, appy, cholecystitis, CVA, Diverticulitis, Homicidal, Suicidal, threat to staff... and all critical care pts) @ -No Disposition Clinical Impression: Left knee pain, Fall Disposition: HOME SELF-CARE Condition: Good Instructions (If sedation given, give patient instructions): Fall Prevention for Older Adults (ED) Additional Instructions: Return to the emergency department if your symptoms worsen or improved. Continue nonweightbearing status of the left knee, and keep knee immobilizer in place until follow-up with acls specialist. Is patient prescribed a controlled substance at d/c from ED?: No Referrals: Julian Rodriguez MD [Primary Care Provider] - 1-2 days Braulio Mccarthy DO [Doctor of Osteopathic Medicine] - 1-2 days
[2024-02-15] MEDS: HYDROmorphone 0.5 MG/0.5 ML SYRINGE IM STA (13:33)
--- NOTE | 2024-02-15 13:55 | XR ---
EXAMINATION TYPE: XR knee complete LT DATE OF EXAM: 02/15/2024 COMPARISON: NONE HISTORY: Pain TECHNIQUE: Three views are submitted. FINDINGS: Severe loss of medial compartment and moderate loss of patellofemoral compartment joint space. Margin al spurring.. Moderate suprapatellar bursal fluid collection. There are vascular calcifications and s urgical clips. Osseous structures are intact. No acute fracture seen. IMPRESSION: 1. No acute fracture or dislocation. 2. Severe osteoarthritis.
[2024-02-15 14:24] VITALS: BP 131/69; PULSE 70; TEMP 98.7
== END 2024-02-15 14:24 | disposition home or self-care (01) ==
LOC: EC 13:13
DX: M17.12 Unilateral primary osteoarthritis, left knee (principal); M25.562 Pain in left knee; Z87.891 Personal history of nicotine dependence; W01.0XXA Fall on same level from slipping, tripping and stumbling without subsequent striking against object, initial encounter; Y93.01 Activity, walking, marching and hiking
CPT/HCPCS: 73562; 99284; 96372; L1830; J1170